=== PATIENT | female | born 1935 | race Caucasian/White ===

== ENCOUNTER 2021-11-17 14:35 | Inpatient (IN) | payer OTHER ==
[2021-11-17 17:45] LABS: Absolute Lymphocytes (CBC) 1.5 K/uL (0.7-4.9); Hematocrit 34.2 % (36.0-45.0); Lymphocytes % 8.6 % (15.3-44.8); MPV 6.6 fL (7.6-11.3); RBC Red Blood Cell Count 4.07 M/uL (3.86-4.86)
[2021-11-17] MEDS ORDERED: NA CHLORIDE 0.9% 100 ML ONE (17:45)
[2021-11-17] MEDS ORDERED: VANCOMYCIN 1 GM/VIAL ONE (17:45)
[2021-11-17] MEDS ORDERED: NA CHLORIDE 0.9% 250 ML ONE (17:45)
[2021-11-17] MEDS ORDERED: CEFEPIME 1 GM/VIAL ONE (17:46)
[2021-11-17] MEDS ORDERED: FENTANYL CITR 100 MCG/2 ML ONE (17:50)
[2021-11-17 17:54] LABS: Protime INR 1.25
--- NOTE | 2021-11-17 18:17 | EDPHYS ---
Physician Documentation [facility] Name: Lauren Green Age: 86 yrs Sex: Female : 1935 Arrival Date: 11/17/2021 Time: 14:43 Bed 18 Private MD: Rebeca Beaver Atiq ED Physician Cristobal Lopez HPI: 11/17 17:05 This 86 yrs old Female presents to ER via Wheelchair with complaints of Wound Check. cp 17:05 The patient presents with confusion. Onset: The symptoms/episode began/occurred cp gradually, and became worse today. 17:05 Possible causes: chronic wound to coccyx area. Associated signs and symptoms: Pertinent cp negatives: abdominal pain, chest pain, fever. Patient's baseline: Neuro: alert and fully oriented, Motor: no deficits, Ambulation: unable to walk, is bedridden, Speech: normal. Patient referred to ED by DR Nunez from wound care today for worsening pressure ulcer wound to coccyx/sacrum area. Historical: - Allergies: 14:49 Codeine; jd3 - PMHx: 14:49 Diabetes mellitus; jd3 - PSHx: 14:49 Cholecystectomy; Appendectomy; jd3 - Immunization history:: Adult Immunizations up to date, Client reports receiving the 2nd dose of the Covid vaccine, Flu vaccine is up to date. - Social history:: Smoking status: Patient denies any tobacco usage or history of. ROS: 17:10 Constitutional: Positive for poor PO intake, Negative for fever. cp 17:10 Eyes: Negative for injury, pain, redness, and discharge. cp 17:10 Cardiovascular: Negative for chest pain. 17:10 Respiratory: Negative for cough, wheezing. 17:10 Abdomen/GI: Negative for vomiting, diarrhea, constipation. 17:10 Back: Positive for pain at rest, pain with movement, of the sacrum. 17:10 : Negative for urinary symptoms. 17:10 Neuro: Positive for altered mental status, Negative for headache. 17:10 All other systems are negative. Exam: 17:15 Constitutional: The patient appears in no acute distress, alert, awake, cp non-diaphoretic, non-toxic, well developed, well nourished, uncomfortable. 17:15 Head/Face: Normocephalic, atraumatic. cp 17:15 Eyes: Periorbital structures: appear normal, Pupils: equal, round, and reactive to light and accomodation, Extraocular movements: intact throughout, Conjunctiva: normal, no exudate, no injection, Sclera: no appreciated abnormality, Lids and lashes: appear normal, bilaterally. 17:15 ENT: External ear(s): are unremarkable, Nose: is normal, Mouth: Lips: moist, Oral mucosa: pink and intact, moist, Posterior pharynx: Airway: no evidence of obstruction, patent. 17:15 Neck: ROM/movement: is normal, is supple, without pain, no range of motions limitations. 17:15 Chest/axilla: Inspection: normal. 17:15 Cardiovascular: Rate: normal, Rhythm: regular, Edema: is not appreciated, JVD: is not appreciated. 17:15 Respiratory: the patient does not display signs of respiratory distress, Respirations: normal, no use of accessory muscles, no retractions, labored breathing, is not present, Breath sounds: are clear throughout, no decreased breath sounds, no stridor, no wheezing. 17:15 Abdomen/GI: Inspection: abdomen appears normal, Bowel sounds: active, all quadrants, Palpation: abdomen is soft and non-tender, in all quadrants. 17:15 Skin: cellulitis, that is severe, on the sacrum and buttocks and coccyx, packed open wounds with purulent drainage noted. 17:15 Neuro: Orientation: to person, situation, Mentation: able to follow commands, slow to respond, Motor: moves all fours. 17:57 ECG was reviewed by the Attending Physician. cp Vital Signs: 14:51 BP 105 / 51; Pulse 97; Resp 17 S; Temp 97.7(TE); Pulse Ox 100% on R/A; Weight 88.45 kg jd3 (R); Height 5 ft. 7 in. (170.18 cm) (R); Pain 10/10; 18:07 BP 101 / 53; Pulse 83; Pulse Ox 94% on R/A; ap3 18:50 BP 141 / 69; Pulse 98; Pulse Ox 100% on R/A; ap3 20:00 BP 135 / 55; Pulse 83; Resp 19; Pulse Ox 100% on R/A; sm5 21:00 BP 110 / 47; Pulse 84; Resp 17; Pulse Ox 96% on R/A; sm5 21:00 BP 129 / 40; Pulse 91; Resp 18; Pulse Ox 96% on R/A; sm5 14:51 Body Mass Index 30.54 (88.45 kg, 170.18 cm) jd3 MDM: 16:32 Patient medically screened. 18:15 Physician consultation: Flaquito Nunez MD was contacted at 18:15, regarding admission, to the medical/surgical unit. patient's condition. 19:00 Data reviewed: vital signs, nurses notes, lab test result(s), EKG, radiologic studies, cp plain films. 20:00 Post IV fluid administration reassessment for Sepsis: Client prescribed 30 mL/kg IVF. Focused Assessment performed: November 17, 2021 at 20:05 Heart: Regular rate/rhythm noted. Lungs: Noted to be clear bilaterally. Current vital signs reviewed: Neuro: Neurological examination did not improve from previous exam. 11/17 17:00 Order name: Basic Metabolic Panel; Complete Time: 18:49 11/17 17:00 Order name: CBC with Diff; Complete Time: 18:13 11/17 18:26 Interpretation: Normal except: WBC 17.0; HCT 34.2; PLT 425; MPV 6.6; LIZETH% 81.5; LYM% cp 8.6; NEUT A 13.8. 11/17 17:00 Order name: LFT's; Complete Time: 18:49 11/17 17:00 Order name: Magnesium; Complete Time: 18:49 11/17 17:00 Order name: NT PRO-BNP; Complete Time: 18:49 11/17 17:00 Order name: PT-INR; Complete Time: 18:13 11/17 17:00 Order name: Troponin HS; Complete Time: 18:49 cp 11/17 17:00 Order name: Wound Culture cp 11/17 17:00 Order name: Procalcitonin; Complete Time: 18:49 11/17 17:00 Order name: Lactate; Complete Time: 18:49 11/17 17:00 Order name: Blood Culture Adult (2) 11/17 17:00 Order name: Urine Microscopic Only cp 11/17 17:47 Order name: COVID-19 SARS RT PCR (Document "Date of Onset" if Symptomatic) 11/17 18:37 Order name: Urine Dipstick-Ancillary; Complete Time: 18:49 EDMS 11/17 17:00 Order name: XRAY Chest (1 view) cp 11/17 19:12 Order name: Hemoglobin A1c EDAK 11/17 19:12 Order name: Thyroid Stimulating Hormone EDMS 11/17 19:12 Order name: CBC with Automated Diff EDMS 11/17 19:12 Order name: CBC with Automated Diff EDMS 11/17 19:12 Order name: CBC with Automated Diff EDMS 11/17 19:12 Order name: CBC with Automated Diff EDMS 11/17 19:12 Order name: Comprehensive Metabolic Panel EDMS 11/17 19:12 Order name: Comprehensive Metabolic Panel EDMS 11/17 19:12 Order name: Comprehensive Metabolic Panel EDMS 11/17 19:12 Order name: Comprehensive Metabolic Panel EDMS 11/17 19:14 Order name: Vancomycin Level Trough EDMS 11/17 19:14 Order name: Vancomycin Peak EDMS 11/17 20:37 Order name: Glucose, Ancillary Testing EDMS 11/17 21:17 Order name: Lactate Sepsis 2 HR Follow-up EDAK 11/17 17:00 Order name: EKG; Complete Time: 17:02 cp 11/17 17:00 Order name: Cardiac monitoring; Complete Time: 17:57 cp 11/17 17:00 Order name: EKG - Nurse/Tech; Complete Time: 17:57 cp 11/17 17:00 Order name: IV Saline Lock; Complete Time: 17:36 cp 11/17 17:00 Order name: Labs collected and sent; Complete Time: 17:36 cp 11/17 17:00 Order name: O2 Per Protocol; Complete Time: 17:49 cp 11/17 17:00 Order name: O2 Sat Monitoring; Complete Time: 17:49 cp 11/17 17:00 Order name: Urine Dipstick-Ancillary (obtain specimen); Complete Time: 18:33 cp 11/17 17:00 Order name: Renee; Complete Time: 18:33 cp 11/17 18:19 Order name: XRAY KUB cp 11/17 19:05 Order name: NPO EDAK 11/17 19:12 Order name: Social Service Consult EDMS EC:57 Rate is 85 beats/min. Rhythm is regular. CO interval is prolonged at 212 msec. QRS cp interval is normal. QT interval is normal. Interpreted by me. Reviewed by me. Administered Medications: 17:48 Drug: fentaNYL (PF) 25 mcg Route: IVP; Site: right antecubital; ap3 18:51 Follow up: Response: No adverse reaction; Pain is decreased ap3 18:04 Drug: Cefepime 1 grams Route: IVPB; Rate: 200 ml/hr; Infused Over: 30 mins; Site: right ap3 antecubital; 18:32 Follow up: IV Status: Completed infusion ap3 18:51 Follow up: Response: No adverse reaction ap3 18:32 Drug: vancoMYCIN 1 grams Route: IVPB; Infused Over: 2 hrs; Site: right antecubital; ap3 19:39 CANCELLED (Physician Discretion): NS 0.9% 1000 ml IV at 500 ml/hr Per protocol; 1000 mL cp bolus 21:30 Drug: Potassium Chloride 20 mEq Route: IV; Rate: calculated rate; Site: right sm5 antecubital; 21:30 Drug: NS 0.9% (30 ml/kg) 30 ml/kg Route: IV; Rate: bolus; Site: right antecubital; sm5 Disposition Summary: 11/17/21 18:16 Hospitalization Ordered Hospitalization Status: Inpatient Admission cp Provider: Flaquito Nunez cp Location: Telemetry/MedSurg (Inpatient) cp Condition: Fair cp Problem: new cp Symptoms: have improved cp Bed/Room Type: Standard cp Room Assignment: 403(11/17/21 20:11) mw Diagnosis - Altered mental status, unspecified cp - Pressure ulcer of buttock cp Forms: - Medication Reconciliation Form cp - SBAR form cp Signatures: Dispatcher [employer] EDMS Karol Arellano RN RN mw Jake Obrien PA PA cp Rod Marie RN RN jd3 Prokisch, Amanda, RN RN ap3 Ese Blount RN RN sm5 Corrections: (The following items were deleted from the chart) 18:17 17:37 Abdomen Pelvis W Con+CT.RAD.BRZ ordered. EDMS EDMS 18:18 18:16 Pressure ulcer of sacral region, stage 4 cp cp 19:08 18:24 Head Brain Wo Cont+CT.RAD.BRZ ordered. EDMS EDMS 19:39 18:52 NS 0.9% 1000 ml IV at 500 ml/hr Per protocol; 1000 mL bolus ordered. cp cp 20:11 18:16 cp mw
--- NOTE | 2021-11-17 18:17 | ER ---
Nurse's Notes [facility] Name: Lauren Green Age: 86 yrs Sex: Female : 1935 Arrival Date: 11/17/2021 Time: 14:43 Bed 18 Private MD: Rebeca Beaver Atiq Diagnosis: Altered mental status, unspecified;Pressure ulcer of buttock Presentation: 11/17 14:47 Chief complaint: Patient's son or daughter states: "Dr. Beaver sent us here to be jd3 admitted for a bad wound her backside that is a stage 3 that smells.". Coronavirus screen: At this time, the client does not indicate any symptoms associated with coronavirus-19. Ebola Screen: No symptoms or risks identified at this time. Initial Sepsis Screen: Does the patient meet any 2 criteria? No. Patient's initial sepsis screen is negative. Does the patient have a suspected source of infection? No. Patient's initial sepsis screen is negative. Risk Assessment: Do you want to hurt yourself or someone else? Patient reports no desire to harm self or others. Onset of symptoms was November 17, 2021. 14:47 Method Of Arrival: Wheelchair jd3 14:47 Acuity: SHANELLE 2 jd3 Historical: - Allergies: 14:49 Codeine; jd3 - PMHx: 14:49 Diabetes mellitus; jd3 - PSHx: 14:49 Cholecystectomy; Appendectomy; jd3 - Immunization history:: Adult Immunizations up to date, Client reports receiving the 2nd dose of the Covid vaccine, Flu vaccine is up to date. - Social history:: Smoking status: Patient denies any tobacco usage or history of. Screenin:31 Abuse screen: Denies threats or abuse. Nutritional screening: No deficits noted. ap3 Tuberculosis screening: No symptoms or risk factors identified. Fall Risk No fall in past 12 months (0 pts). Secondary diagnosis (15 points) impaired mobility, IV access (20 points). Ambulatory Aid- None/Bed Rest/Nurse Assist (0 pts). Gait- Impaired (20 pts.). Mental Status- Oriented to own ability (0 pts). Total Tim Fall Scale indicates High Risk Score (45 or more points). Fall prevention measures have been instituted. Side Rails Up X 2 Placed Close to Nursing Station Frequent Obs/Assessments Occuring Family Present and informed to notify staff if the need to leave the bedside As available patient and family educated on Fall Prevention Program and Strategies. Assessment: 18:04 General: Appears in no apparent distress. uncomfortable, Behavior is cooperative, ap3 restless. Pain: Complains of pain in coccyx and gluteal cleft Pain currently is 10 out of 10 on a pain scale. Neuro: Level of Consciousness is awake, alert, obeys commands, confused, Oriented to person, time, Speech is normal. Cardiovascular: Patient's skin is warm and dry. Respiratory: Airway is patent Respiratory effort is even, unlabored. Derm: Wound noted coccyx and gluteal cleft Wound is packed and dressed. patients sister at the bedside reports that the patient went to wound care this afternoon. nurse and provider assessed dressing and pulled primary dressing off. nurse replaced primary dressing after retrieving a culture. 18:45 Reassessment: patient received full linen change. ap3 19:45 Reassessment: No changes from previously documented assessment. Patient and/or family sm5 updated on plan of care and expected duration. Pain level reassessed. 20:48 Reassessment: No changes from previously documented assessment. sm5 21:50 Reassessment: No changes from previously documented assessment. Patient and/or family sm5 updated on plan of care and expected duration. Pain level reassessed. 23:00 Reassessment: No changes from previously documented assessment. sm5 23:27 Reassessment: pt sent to floor with printed order for magnesium and rest of fluid bolus sm5 to be given by the nurse on the floor. Vital Signs: 14:51 BP 105 / 51; Pulse 97; Resp 17 S; Temp 97.7(TE); Pulse Ox 100% on R/A; Weight 88.45 kg jd3 (R); Height 5 ft. 7 in. (170.18 cm) (R); Pain 10/10; 18:07 BP 101 / 53; Pulse 83; Pulse Ox 94% on R/A; ap3 18:50 BP 141 / 69; Pulse 98; Pulse Ox 100% on R/A; ap3 20:00 BP 135 / 55; Pulse 83; Resp 19; Pulse Ox 100% on R/A; sm5 21:00 BP 110 / 47; Pulse 84; Resp 17; Pulse Ox 96% on R/A; sm5 21:00 BP 129 / 40; Pulse 91; Resp 18; Pulse Ox 96% on R/A; sm5 14:51 Body Mass Index 30.54 (88.45 kg, 170.18 cm) jd3 ED Course: 14:43 Patient arrived in ED. am2 14:45 Rebeca Beaver MD is Private Physician. am2 14:49 Triage completed. jd3 14:50 Jake Obrien PA is PHCP. cp 14:50 Cristobal Lopez DO is Attending Physician. cp 14:52 Arm band placed on. jd3 16:31 Divya Nelson, RN is Primary Nurse. ap3 16:31 Patient has correct armband on for positive identification. Bed in low position. Call ap3 light in reach. Side rails up X2. Adult w/ patient. Pulse ox on. NIBP on. Door closed. Noise minimized. 17:37 Inserted saline lock: 22 gauge in right antecubital area, using aseptic technique. ap3 Blood collected. 17:59 COVID-19 SARS RT PCR (Document "Date of Onset" if Symptomatic) Sent. mb7 18:15 Flaquito Nunez MD is Hospitalizing Provider. cp 18:18 COVID-19 SARS RT PCR (Document "Date of Onset" if Symptomatic) Sent. ap3 18:57 XRAY Chest (1 view) In Process Unspecified. EDMS 18:57 XRAY KUB In Process Unspecified. EDMS 19:11 Primary Nurse role handed off by Divya Nelson, GUERDA mw2 19:21 Ese Blount, GUERDA is Primary Nurse. 5 23:25 No provider procedures requiring assistance completed. Patient admitted, IV remains in [address] Administered Medications: 17:48 Drug: fentaNYL (PF) 25 mcg Route: IVP; Site: right antecubital; ap3 18:51 Follow up: Response: No adverse reaction; Pain is decreased ap3 18:04 Drug: Cefepime 1 grams Route: IVPB; Rate: 200 ml/hr; Infused Over: 30 mins; Site: right ap3 antecubital; 18:32 Follow up: IV Status: Completed infusion ap3 18:51 Follow up: Response: No adverse reaction ap3 18:32 Drug: vancoMYCIN 1 grams Route: IVPB; Infused Over: 2 hrs; Site: right antecubital; ap3 19:39 CANCELLED (Physician Discretion): NS 0.9% 1000 ml IV at 500 ml/hr Per protocol; 1000 mL cp bolus 21:30 Drug: Potassium Chloride 20 mEq Route: IV; Rate: calculated rate; Site: right sm5 antecubital; 21:30 Drug: NS 0.9% (30 ml/kg) 30 ml/kg Route: IV; Rate: bolus; Site: right antecubital; 5 Medication: 18:15 VIS not applicable for this client. ap3 Outcome: 18:16 Decision to Hospitalize by Provider. cp 23:25 Admitted to Med/surg accompanied by tech, via stretcher, with chart, Report called to [facility] Lanny 23:25 Condition: stable 23:25 Instructed on the need for admit. 23:28 Patient left the ED. [facility] Signatures: Dispatcher [employer] EDMS Jake Obrien PA PA cp Moreno, Amanda amRod Hayes RN RN Divya Ware RN RN ap3 Radha Luo [facility] Katherine Mcmullen 7 Ese Blount RN RN sm5 Corrections: (The following items were deleted from the chart) 14:52 14:47 Acuity: SHANELLE 3 jd3 jd3
[2021-11-17 18:24] LABS: Albumin 2.7 g/dL (3.4-5.0); Bilirubin Direct 0.2 mg/dL (0-0.2); Bilirubin Total 0.7 mg/dL (0.2-1.0); Magnesium 1.6 mg/dL (1.8-2.4); Protein, Total 7.6 g/dL (6.4-8.2); Troponin High Sensitivity 18.6 pg/mL (<58.9)
[2021-11-17 18:25] LABS: Potassium 2.7 mmol/L (3.5-5.1)
[2021-11-17 18:37] LABS: Urine Blood Negative (Negative); Urine Glucose Negative (Negative); Urine Protein Negative (Negative); Urine Specific Gravity 1.015 (1.005-1.030)
[2021-11-17 19:07] LABS: Urine Bacteria <20 /HPF (<20); Urine RBC <5 /HPF (NONE SEEN)
[2021-11-17] MEDS ORDERED: WATER FOR INJ,STERILE 10 ML IM PRN (19:07)
[2021-11-17] MEDS ORDERED: D50W 25 GM/50 ML SYRINGE IV PRN (19:07)
[2021-11-17] MEDS ORDERED: GLUCAGON 1 MG/VIAL IM PRN (19:07)
[2021-11-17] MEDS ORDERED: ZIPRASIDONE MESYLA 20 MG/VIAL IM PRN (19:07)
--- NOTE | 2021-11-17 19:15 | P.HP ---
Certification for Inpatient Patient admitted to: Inpatient With expected LOS: >2 Midnights Patient will require the following post-hospital care: Long Term Practitioner: I am a practitioner with admitting privileges, knowledge of patient current condition, hospital course, and medical plan of care. Services: Services provided to patient in accordance with Admission requirements found in Title 42 Section 412.3 of the Code of Federal Regulations Patient History Date of Service: 11/18/21 Primary Care Provider: Delia Reason for admission: Sepsis secondary to pressure ulcer History of Present Illness: Patient of Dr. Lin with a history of diabetes, htn and stroke. Mostly bed bound. Had developed a pressure ulcer for which Dr. Lin sent her to the wound care center. She had been started on Santyl last week. The past 3 days the patient has been getting increased more confused. Eating less and getting more combative. She had worsening of the wound bed. Was much deeper on todays exam. Decisison was made with her sister to admit her. Allergies codeine Adverse Reaction (Verified 11/17/21 20:14) Hives Home Medications: Aspirin [Aspirin EC 81 MG] 81 mg PO DAILY 11/11/21 Furosemide 40 mg PO DAILY 11/11/21 Insulin Aspart Prot/Insuln Asp [Novolog Mix 70-30 Flexpen Syrn] 40 unit SQ BEDTIME 11/11/21 Insulin Aspart Prot/Insuln Asp [Novolog Mix 70-30 Flexpen Syrn] 52 unit SQ DAILY 11/11/21 Metolazone [Zaroxolyn] 10 mg PO DAILY 11/11/21 Metoprolol Succinate 25 mg PO DAILY 11/11/21 Cholecalciferol (Vitamin D3) [Vitamin D3] 125 mcg PO DAILY 11/18/21 Potassium Gluconate 90 mg PO DAILY 11/18/21 Vitamin B Complex [B-Complex Vitamin] 1 cap PO DAILY 11/18/21 Vitamin E (Dl,Tocopheryl Acet) [Vitamin E] 180 mg PO DAILY 11/18/21 - Past Medical/Surgical History Diabetic: Yes -: htn -: dm -: cholecystectomy - Family History Mother -: Diabetes Sister -: Diabetes Brother -: Diabetes - Social History Alcohol use: No Review of Systems is unable to be obtained Physical Examination - Physical Exam General: Moderate distress, Delirious HEENT: Atraumatic, PERRLA, Mucous membr. moist/pink, EOMI, Sclerae nonicteric Neck: Supple, 2+ carotid pulse no bruit, No LAD, Without JVD or thyroid abnormality Respiratory: Clear to auscultation bilaterally, Normal air movement Cardiovascular: Regular rate/rhythm, Normal S1 S2 Gastrointestinal: Normal bowel sounds, No tenderness Musculoskeletal: No tenderness Integumentary: No rashes, Pressure ulcer (stage 2 Please see wound care note. ) Neurological: Normal gait, Normal speech, Normal strength at 5/5 x4 extr, Normal tone, Normal affect Lymphatics: No axilla or inguinal lymphadenopathy - Studies Laboratory Data (last 24 hrs) 11/17/21 17:32: PT 13.8 H, INR 1.25 11/17/21 17:32: WBC 17.0 H, Hgb 12.1, Hct 34.2 L, Plt Count 425 H 11/17/21 17:32: Sodium 127 L, Potassium 2.7 L*, BUN 42 H, Creatinine 1.08, Glucose 251 H, Magnesium 1.6 L, Total Bilirubin 0.7, AST 26, ALT 17, Alkaline Phosphatase 98 Assessment and Plan - Problems (Diagnosis) (1) Sepsis Current Visit: Yes Status: Acute Plan: will send her to the ER for admission. Get cultures and start antibiotics and fluids. Will need surgical debridgement of the ulcer. This is the most likely source of infection. If goes down to the bone. The patient will need 6 weeks of iv antibiotics. Will get an xray of the region. 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 Muse for debridme nt. Qualifiers: Laterality: right Qualified Code(s): L89.313 - Pressure ulcer of right buttock, stage 3 (3) Delirium Current Visit: Yes Status: Acute Plan: Most likely due to pain and infection. She is responsive and moves all 4 limbs (4) Diabetes Current Visit: No Status: Chronic Plan: will keep her on low dose sliding scale. Qualifiers: Diabetes mellitus type: type 2 Diabetes mellitus penitentiary insulin use: with penitentiary use Diabetes mellitus complication status: without complication Qualified Code(s): E11.9 - Type 2 diabetes mellitus without complications; Z79.4 - longterm (current) use of insulin (5) Hypertension Current Visit: No Status: Chronic Plan: restart her metoprolol. Qualifiers: Hypertension type: primary hypertension Qualified Code(s): I10 - Essential (primary) hypertension Discharge Plan: LTAC Plan to discharge in: Greater than 2 days - Advance Directives Does patient have a Living Will: Yes Does patient have a Durable POA for Healthcare: Yes - Code Status/Comfort Care Code Status Assessed: No Code Status: Full Code Physician Review: Patient Assessed, Agree with Above Assessment and Plan Critical Care: No Time Spent Managing Pts Care (In Minutes): 75
--- NOTE | 2021-11-17 19:52 | RAD REPORT ---
EXAM DESCRIPTION: RAD - Chest Single View - 11/17/2021 6:55 pm CLINICAL HISTORY: pressure wound buttocks COMPARISON: None TECHNIQUE: AP portable chest image was obtained 11/17/2021 6:55 pm . FINDINGS: Lungs are clear. Heart and vasculature are normal. No measurable pleural effusion and no p neumothorax. No acute bony abnormality seen. No acute aortic findings suspected. IMPRESSION: No acute cardiopulmonary process.
--- NOTE | 2021-11-17 19:53 | RAD REPORT ---
EXAM DESCRIPTION: RAD - Abdomen 1 View (KUB) - 11/17/2021 6:55 pm CLINICAL HISTORY: decubitus ulcer COMPARISON: No comparisons FINDINGS: Bowel gas pattern is non-specific. No obstruction, free air or pneumatosis. No suspicious calcifications. Numerous surgical clips and suture wires are seen lateral mid abdomen. Bony degenerative changes are present. No acute bone finding. IMPRESSION: Negative KUB examination for acute or emergent finding.
[2021-11-17] MEDS ORDERED: VANCOMYCIN 1 GM in NA CHLORIDE 0.9% 250 ML IVPB SCH (20:00)
[2021-11-17] MEDS ORDERED: VANCOMYCIN 500 MG in NA CHLORIDE 0.9% 100 ML IVPB SCH (20:00)
[2021-11-17] MEDS ORDERED: KCL 20 MEQ/100 mL IVPB 100 ML IV ONE (21:16)
[2021-11-17] MEDS ORDERED: NA CHLORIDE 0.9% 1,000 ML ONE (21:16)
[2021-11-18 00:41] VITALS: BMI 32.0
[2021-11-18] MEDS: NA CHLORIDE 0.9% 1,000 ML IV SCH ×2 (01:35→09:20)
[2021-11-18] MEDS: Meropenem 1,000 MG in NA CHLORIDE 0.9% 100 ML IV SCH ×3 (01:36→22:04)
[2021-11-18] MEDS: INSULIN -REGULAR HUMAN 50 UNIT/0.5 ML ML SQ SCH ×5 (01:37→22:05)
[2021-11-18] MEDS ORDERED: D10W 125 ML IV PRN (06:02)
[2021-11-18] MEDS: PANTOPRAZOLE 40MG TABLET PO SCH (06:25)
[2021-11-18] MEDS ORDERED: NA CHLORIDE 0.9% 250 ML ONE (06:41)
[2021-11-18 06:43] LABS: Absolute Lymphocytes (CBC) 0.9 K/uL (0.7-4.9); Hematocrit 31.2 % (36.0-45.0); Lymphocytes % 3.6 % (15.3-44.8); MPV 6.4 fL (7.6-11.3)
[2021-11-18] MEDS ORDERED: NA CHLORIDE 0.9% 1,000 ML IV ONE (07:00)
[2021-11-18 07:08] LABS: Albumin 2.1 g/dL (3.4-5.0); Bilirubin Total 0.8 mg/dL (0.2-1.0); Protein, Total 6.1 g/dL (6.4-8.2); Thyroid Stimulating Hormone 1.98 uIU/mL (0.360-3.740)
[2021-11-18 07:09] LABS: Potassium 2.6 mmol/L (3.5-5.1)
[2021-11-18] MEDS: HYDROMORPHONE HCL 1 MG/ML INJ IV PRN ×2 (07:57→19:51)
[2021-11-18] MEDS ORDERED: GLUCAGON 1 MG/VIAL IM PRN (08:00)
[2021-11-18] MEDS ORDERED: D50W 25 GM/50 ML SYRINGE IV PRN (08:00)
--- NOTE | 2021-11-18 08:02 | P.PN ---
Subjective Date of Service: 11/18/21 Primary Care Provider: Delia Chief Complaint: Sepsis secondary to pressure ulcer Subjective: No new changes (Patient is confused. Needs electrolyte replacement) Review of Systems is unable to be obtained Physical Examination - Vital Signs Temperature: 98.1 F Blood Pressure: 101/42 Pulse: 83 Respirations: 14 Pulse Ox (%): 92 - Physical Exam General: Delirious HEENT: Atraumatic, PERRLA, EOMI Neck: Supple, JVD not distended Respiratory: Clear to auscultation bilaterally, Normal air movement Cardiovascular: Regular rate/rhythm, Normal S1 S2 Gastrointestinal: Normal bowel sounds, No tenderness Musculoskeletal: No tenderness Integumentary: No rashes Neurological: Normal speech, Normal tone, Normal affect Lymphatics: No axilla or inguinal lymphadenopathy - Studies Laboratory Data (last 24 hrs) 11/17/21 17:32: PT 13.8 H, INR 1.25 11/17/21 17:32: WBC 17.0 H, Hgb 12.1, Hct 34.2 L, Plt Count 425 H 11/17/21 17:32: Sodium 127 L, Potassium 2.7 L*, BUN 42 H, Creatinine 1.08, Glucose 251 H, Magnesium 1.6 L, Total Bilirubin 0.7, AST 26, ALT 17, Alkaline Phosphatase 98 Assessment And Plan - Current Problems (Diagnosis) (1) Sepsis Current Visit: Yes Status: Acute Plan: will send her to the ER for admission. Get cultures and start antibiotics and fluids. Will need surgical debridgement of the ulcer. This is the most likely source of infection. If goes down to the bone. The patient will need 6 weeks of iv antibiotics. Will get an xray of the region. 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 Muse for debridment. Qualifiers: Laterality: right Qualified Code(s): L89.313 - Pressure ulcer of right buttock, stage 3 (3) Delirium Current Visit: Yes Status: Acute Plan: Most likely due to pain and infection. She is responsive and moves all 4 limbs (4) Diabetes Current Visit: No Status: Chronic Plan: will keep her on low dose sliding scale. 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 Qualifiers: Hypertension type: primary hypertension Qualified Code(s): I10 - Essential (primary) hypertension Discharge Plan: LTAC Plan to discharge in: Greater than 2 days - Code Status/Comfort Care Code Status Assessed: No Physician Review: Patient Assessed, Agree with Above Assessment and Plan Critical Care: No Time Spent Managing PTS Care (In Minutes): 25
[2021-11-18 08:34] LABS: Blood Morphology Comment NOT SEEN (NOT SEEN); Platelet Estimate ADEQ
[2021-11-18] MEDS: METOPROLOL XL 25 MG TAB PO SCH (08:54)
[2021-11-18] MEDS ORDERED: NA CHLORIDE IV ONE (09:00)
[2021-11-18] MEDS ORDERED: POTASSIUM CL IV ONE (09:00)
--- NOTE | 2021-11-18 09:09 | EKG ---
Test Date: 2021-11-17 Test Time: 17:52:41 Housekeeper Home: [facility] MEASUREMENT RESULTS: Intervals: Rate: 85 TN: 212 QRSD: 92 QT: 412 QTc: 490 [place]: P: 31 TN: 212 QRS: 18 T: 61 INTERPRETIVE STATEMENTS: Sinus rhythm with 1st degree AV block with premature supraventricular complexes Nonspecific T wave abnormality Abnormal ECG No previous ECG available for comparison Electronically Signed On 11-18-21 09:08:06 CDT by Taj Joshi
[2021-11-18] MEDS ORDERED: BUPIVACAINE 0.25% PF 10 ML VIAL ONE (10:57)
[2021-11-18] MEDS ORDERED: SODIUM HYPOCHLORITE 0.25% 473 ML ONE (10:58)
[2021-11-18] MEDS ORDERED: NA CHLORIDE 0.9% 1,000 ML ONE ×2 (12:46→14:58)
[2021-11-18] MEDS ORDERED: LIDOCAINE 1% MPF 5 ML VIAL ONE (13:09)
[2021-11-18] MEDS ORDERED: propofoL 200 MG/20 ML VIAL IV ONE (13:09)
[2021-11-18] MEDS ORDERED: LIDOCAINE 1% MPF 2 ML AMPULE ONE (13:10)
[2021-11-18] MEDS ORDERED: EPHEDRINE SULF 50 MG/ML VIAL ONE (13:32)
[2021-11-18] MEDS ORDERED: FENTANYL CITR 100 MCG/2 ML ONE (13:39)
[2021-11-18] MEDS ORDERED: Phenylephrine HCl 10 MG/ML 1 ML VIAL ONE (13:42)
--- NOTE | 2021-11-18 14:20 | P.OP ---
Preoperative diagnosis: Infected Sacral Pressure Ulcer Postoperative diagnosis: Infected Sacral Pressure Ulcer Primary procedure: Debridement of Infected Sacral Pressure Ulcer to Bone Anesthesia: GETA Estimated blood loss: 30cc Specimen: cultures, debridement tissue Findings: Necrosis to sacrum with osteomyelitis ~ 15cm round Complications: None Transferred to: Recovery Room Condition: Good
[2021-11-18] MEDS: ENOXAPARIN 40 MG/0.4 ML SQ SCH (16:53)
[2021-11-18] MEDS ORDERED: VANCOMYCIN 1.25 GM in NA CHLORIDE 0.9% 250 ML IVPB SCH (18:00)
--- NOTE | 2021-11-18 19:43 | CON ---
Date of Consultation: 11/18/2021 Brief History Of Present Illness: The patient is an 86-year-old female with a history of hypertensio n, diabetes, and CVA, mostly bedbound, who had developed a pressure ulcer for which a physician named Dr. Rucker [facility]. She had been started on Santyl last week. In the past 3 days, she has been getting more confused, eating less, combative, disoriented, and worsening foul odor from the bed and as such the family brought her to the emergency room with the above-stated comp laints. Past Medical History: As described above with hypertension, diabetes, and stroke as well as being be dbound. Allergies: CODEINE. Medications: Home medications include aspirin, Lasix, insulin, Zaroxolyn, metoprolol, cholecalcifero l, potassium gluconate, vitamin B complex, vitamin E. Family History: Significant for diabetes in all siblings and her mother. Social History: Unable to obtain as the patient remains disoriented throughout my examination. Review of Systems: Unable to obtain as the patient remains disoriented throughout my examination. Physical Examination: General: She is awake, alert, and conversive, but confused and unable to answer questions appropriat ino. HEENT: She is otherwise normocephalic. Sclerae anicteric. Mucous membranes moist. Oropharynx diego r. Neck: Supple. No JVD. Chest: Diminished excursion. Cardiovascular: Regular rate and rhythm. Pulmonary: Clear to auscultation bilaterally. Abdomen: Soft, nontender. Back: Focused examination of her back shows a pressure ulcer stage IV, likely with necrosis extendin g to the sacrum with feculent foul odor and obvious black necrosis in this area. Laboratory Data: She had a laboratory exam, which revealed a white blood cell count of 17, hemoglobi n is 12.1, hematocrit 34.2, platelet count is 425. Her coag's showed a PT 13.8, INR 1.25. Chemistry showed a sodium of 129, potassium was 2.6, chloride 89, carbon dioxide 33, BUN 35, creatinine was 1. 09, glucose is 206, lactic acid 1.8, calcium 9.4, total bilirubin 0.8, direct component was not measu red. AST 20, ALT 13, alkaline phosphatase 77. Procalcitonin was 0.19. COVID was negative. She had a KUB x-ray performed on 11/17/2021 officially read as negative KUB for any emergent findings. She had a chest x-ray performed as well, officially read as no acute cardiopulmonary process. Assessment And Plan: This is an 86-year-old female who comes in with sepsis likely related to a sign ificant infection/pressure ulcer of her sacral area with infection extending in this area. 1.IV fluid hydration. 2.Antibiotic coverage. 3.I have explained risks, benefits, and alternatives of wide local debridement of this area to her s ister, who is currently her medical power of state's attorney including but not limited to bleeding, infectio n, damage to surrounding tissue, need for further operations and procedures, ongoing wound care. The patient's family agrees to proceed as indicated. Thank you for this interesting consult. NIKKO/GIORGI Voice ID: [id number] Report ID: [id number]
--- NOTE | 2021-11-19 00:44 | OP ---
Date of Procedure: 11/18/2021 Surgeon: Jamal Muse MD, Preoperative Diagnosis: Infected sacral pressure ulcer. Postoperative Diagnosis: Infected sacral pressure ulcer. Procedure Performed: Debridement of infected sacral pressure ulcer extending to the bone. Anesthesia: General endotracheal. Estimated Blood Loss: 30 cc. Specimen: Cultures were sent as well as debridement tissue for specimen. Findings: Necrosis extending to the sacrum with osteomyelitis overlying the sacrococcygeal area, jonah roximately 15 cm round area of necrosis. Complications: None. Disposition: The patient was transferred to the recovery room in good condition. Procedure In Detail: After informed consent was obtained, the patient was brought to the operating r oom and prepped in the usual sterile fashion. After adequate anesthesia was achieved, a 10-blade was used to circumferentially dissect out and through the subcutaneous tissues down through subcutaneous tissues. A large area of the sacrum, which had obvious infected necrosis with feculent odor, this w as debrided using a combination of sharp as well as electrocautery dissection circumferentially down to remove all necrotic tissue, which extended through the muscular plane and into the bone of the sac rum. Osteomyelitis was appreciated at the sacrum at this area. All necrotic tissue was debrided usi ng the above methods, and when all debrided tissue was removed, cultures were sent both aerobic and a naerobic speciation from the specimen. At this point, debridement tissue was sent off as well. The area was copiously irrigated. Hemostasis was achieved with electrocautery. After appropriately dryi ng, the wound was then packed with Dakin-soaked Kerlix. Two Kerlix rolls were placed and a sterile d ry dressing was placed over the top. The patient tolerated the procedure well without evidence of co mplication and was transferred to PACU in good condition. All counts were correct at the end of the case. NIKKO/MODL Voice ID: [id number] Report ID: [id number]
[2021-11-19] MEDS: ACETAMINOPHEN 500 MG TAB PO PRN (02:51)
[2021-11-19] MEDS ORDERED: KCL 20 MEQ/100 mL IVPB 20 MEQ/100 ML BAG IV SCH (03:00)
[2021-11-19] MEDS: PANTOPRAZOLE 40MG TABLET PO SCH (05:33)
[2021-11-19 05:58] LABS: Absolute Lymphocytes (CBC) 1.7 K/uL (0.7-4.9); Lymphocytes % 13.6 % (15.3-44.8); MPV 6.4 fL (7.6-11.3); RBC Red Blood Cell Count 3.12 M/uL (3.86-4.86)
[2021-11-19] MEDS: HYDROMORPHONE HCL 1 MG/ML INJ IV PRN ×2 (06:04→16:01)
[2021-11-19] MEDS: NA CHLORIDE 0.9% 1,000 ML IV SCH ×2 (06:10→12:00)
[2021-11-19 06:11] LABS: Albumin 1.8 g/dL (3.4-5.0); Bilirubin Total 0.5 mg/dL (0.2-1.0); Potassium 3.5 mmol/L (3.5-5.1); Protein, Total 5.6 g/dL (6.4-8.2)
--- NOTE | 2021-11-19 08:36 | P.PN ---
Subjective Date of Service: 11/19/21 Primary Care Provider: Delia Chief Complaint: Sepsis secondary to pressure ulcer Subjective: Improving Review of Systems is unable to be obtained Physical Examination - Vital Signs Temperature: 98.9 F Blood Pressure: 99/47 Pulse: 80 Respirations: 18 Pulse Ox (%): 97 - Physical Exam General: In no apparent distress HEENT: Atraumatic, PERRLA, EOMI Neck: Supple, JVD not distended Respiratory: Clear to auscultation bilaterally, Normal air movement Cardiovascular: Regular rate/rhythm, Normal S1 S2 Gastrointestinal: Normal bowel sounds, No tenderness Musculoskeletal: No tenderness Integumentary: No rashes Neurological: Normal speech, Normal tone, Normal affect Lymphatics: No axilla or inguinal lymphadenopathy Assessment And Plan - Current Problems (Diagnosis) (1) Decubitus ulcer of buttock, stage 3 Current Visit: Yes Status: Chronic Plan: uncovered increased depth with the santyl will consult Dr. Muse for debridment. Qualifiers: Laterality: right Qualified Code(s): L89.313 - Pressure ulcer of right buttock, stage 3 (2) Delirium Current Visit: Yes Status: Acute Plan: Most likely due to pain and infection. She is responsive and moves all 4 limbs (3) Diabetes Current Visit: No Status: Chronic Plan: will keep her on low dose sliding scale. 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 Qualifiers: Hypertension type: primary hypertension Qualified Code(s): I10 - Essential (primary) hypertension (5) Osteomyelitis Current Visit: Yes Status: Acute Plan: Patient has e coli in the wound. multidrug sensitive. We can wait a day for blood and surgical cultures. before starting specific antibiotics. Consider levaquin. she needs snf placement for wound care and 6 weeks of iv antibiotics. Qualifiers: Osteomyelitis type: other acute Laterality: unspecified laterality Discharge Plan: LTAC Plan to discharge in: 48 Hours - Code Status/Comfort Care Code Status Assessed: No Physician Review: Patient Assessed, Agree with Above Assessment and Plan Critical Care: No Time Spent Managing PTS Care (In Minutes): 20
[2021-11-19] MEDS: METOPROLOL XL 25 MG TAB PO SCH (09:00)
[2021-11-19] MEDS: INSULIN GLARGINE 100 UNIT/ML SQ SCH (09:29)
[2021-11-19] MEDS: INSULIN -REGULAR HUMAN 50 UNIT/0.5 ML ML SQ SCH ×4 (09:30→20:43)
[2021-11-19] MEDS: Meropenem 1,000 MG in NA CHLORIDE 0.9% 100 ML IV SCH ×2 (09:32→20:42)
[2021-11-19] MEDS ORDERED: VANCOMYCIN 1.5 GM in NA CHLORIDE 0.9% 500 ML IVPB SCH (14:00)
[2021-11-19] MEDS: COLLAGENASE 30 GM OINTMENT TOP SCH (16:02)
[2021-11-19] MEDS: SODIUM HYPOCHLORITE 0.25% 473 ML TOP SCH (16:03)
[2021-11-19] MEDS: ENOXAPARIN 40 MG/0.4 ML SQ SCH (17:49)
--- NOTE | 2021-11-19 19:25 | P.PN ---
Subjective Date of Service: 11/19/21 Primary Care Provider: Delia Chief Complaint: Sepsis secondary to pressure ulcer Subjective: Improving Physical Examination - Vital Signs Temperature: 99.1 F Blood Pressure: 92/40 Pulse: 79 Respirations: 18 Pulse Ox (%): 99 - Physical Exam General: Alert, In no apparent distress, Cooperative, Confused Integumentary: Other (sacral wound is stable) Assessment And Plan - Current Problems (Diagnosis) (1) Osteomyelitis Current Visit: Yes Status: Acute Plan: - continue wound care per order - pressure reduction with rolling Q2 hrs - air mattress - antibiotics - continue medical management per Dr. Nunez Qualifiers: Osteomyelitis type: other acute Laterality: unspecified laterality Physician Review: Patient Assessed, Agree with Above Assessment and Plan
[2021-11-20] MEDS: NA CHLORIDE 0.9% 1,000 ML IV SCH ×3 (01:20→20:02)
[2021-11-20 06:17] LABS: Absolute Lymphocytes (CBC) 1.8 K/uL (0.7-4.9); Hematocrit 31.4 % (36.0-45.0); Lymphocytes % 19.1 % (15.3-44.8); MPV 6.5 fL (7.6-11.3); RBC Red Blood Cell Count 3.59 M/uL (3.86-4.86)
[2021-11-20] MEDS: PANTOPRAZOLE 40MG TABLET PO SCH (06:17)
[2021-11-20 06:49] LABS: Albumin 1.9 g/dL (3.4-5.0); Bilirubin Total 0.6 mg/dL (0.2-1.0); Protein, Total 5.6 g/dL (6.4-8.2)
[2021-11-20 06:50] LABS: Potassium 2.9 mmol/L (3.5-5.1)
[2021-11-20] MEDS: INSULIN -REGULAR HUMAN 50 UNIT/0.5 ML ML SQ SCH ×4 (07:30→20:48)
--- NOTE | 2021-11-20 08:19 | P.PN ---
Subjective Date of Service: 11/20/21 Primary Care Provider: Delia Chief Complaint: Sepsis secondary to pressure ulcer Subjective: Improving Review of Systems 10-point ROS is otherwise unremarkable Neurological: Confusion Physical Examination - Vital Signs Temperature: 98.3 F Blood Pressure: 101/59 Pulse: 80 Respirations: 16 Pulse Ox (%): 97 - Physical Exam General: In no apparent distress, Confused HEENT: Atraumatic, PERRLA, EOMI Neck: Supple, JVD not distended Respiratory: Clear to auscultation bilaterally, Normal air movement Cardiovascular: Regular rate/rhythm, Normal S1 S2 Gastrointestinal: Normal bowel sounds, No tenderness Musculoskeletal: No tenderness Integumentary: No rashes Neurological: Normal speech, Normal tone, Normal affect Lymphatics: No axilla or inguinal lymphadenopathy Assessment And Plan - Current Problems (Diagnosis) (1) Osteomyelitis Current Visit: Yes Status: Acute Plan: Patient has e coli in the wound. multidrug sensitive. We can wait a day for blood and surgical cultures. before starting specific antibiotics. Consider levaquin. she needs snf placement for wound care and 6 weeks of iv antibiotics. 11/20 will change the patient to levaquin. She has gram +ve in the operative wound culture. E. coli in the initial wound culture. Levaquin will cover both Will await the antibiotigram to see if there is any other meds we have to cover. We can add oral bactrim to protect from MRSA Qualifiers: Osteomyelitis type: other acute Laterality: unspecified laterality (2) Delirium Current Visit: Yes Status: Acute Plan: Most likely due to pain and infection. She is responsive and moves all 4 limbs 11/20 She is arousable. Has been in bed for 4 days. Will start by removing oxygen and monitor to make the patient more comfortable. Have PT get her up to chair for an hour. Will need to slowly increase her activity. She has been mostly chair and bed bound for the last few months. (3) Diabetes Current Visit: No Status: Chronic Plan: will keep her on low dose sliding scale. 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 Qualifiers: Hypertension type: primary hypertension Qualified Code(s): I10 - Essential (primary) hypertension (5) Discharge planning issues Current Visit: Yes Status: Acute Plan: will need PT, Wound care and 6 weeks of iv antibiotics. Will discuss with Soc ial services. Physician Review: Patient Assessed, Agree with Above Assessment and Plan Critical Care: No Time Spent Managing PTS Care (In Minutes): 20
[2021-11-20 08:24] LABS: Blood Morphology Comment NOTED (NOT SEEN); Hypochromasia 1+; Platelet Estimate ADEQ
[2021-11-20] MEDS: INSULIN GLARGINE 100 UNIT/ML SQ SCH (09:00)
[2021-11-20] MEDS: METOPROLOL XL 25 MG TAB PO SCH (09:00)
[2021-11-20] MEDS: Levofloxacin 750mg IV 750 MG/150 ML BAG IV SCH (10:54)
[2021-11-20] MEDS: SODIUM HYPOCHLORITE 0.25% 473 ML TOP SCH (10:54)
[2021-11-20] MEDS: COLLAGENASE 30 GM OINTMENT TOP SCH (10:55)
[2021-11-20] MEDS: KCL 20 MEQ/100 mL IVPB 20 MEQ/100 ML BAG IV SCH ×3 (11:01→18:49)
[2021-11-20] MEDS: ENOXAPARIN 40 MG/0.4 ML SQ SCH (17:50)
[2021-11-21] MEDS: NA CHLORIDE 0.9% 1,000 ML IV SCH ×2 (05:01→20:14)
[2021-11-21] MEDS: PANTOPRAZOLE 40MG TABLET PO SCH (05:01)
[2021-11-21 05:53] LABS: Potassium 3.3 mmol/L (3.5-5.1)
[2021-11-21] MEDS: KCL 20 MEQ/100 mL IVPB 20 MEQ/100 ML BAG IV SCH ×2 (06:18→10:07)
[2021-11-21] MEDS: INSULIN -REGULAR HUMAN 50 UNIT/0.5 ML ML SQ SCH ×4 (07:30→19:53)
--- NOTE | 2021-11-21 08:17 | P.PN ---
Subjective Date of Service: 11/21/21 Primary Care Provider: Delia Chief Complaint: Sepsis secondary to pressure ulcer Subjective: No new changes Review of Systems 10-point ROS is otherwise unremarkable Physical Examination - Vital Signs Temperature: 97.4 F Blood Pressure: 124/61 Pulse: 80 Respirations: 14 Pulse Ox (%): 99 - Physical Exam General: Alert, In no apparent distress, Confused HEENT: Atraumatic, PERRLA, EOMI Neck: Supple, JVD not distended Respiratory: Clear to auscultation bilaterally, Normal air movement Cardiovascular: Regular rate/rhythm, Normal S1 S2 Gastrointestinal: Normal bowel sounds, No tenderness Musculoskeletal: No tenderness Integumentary: No rashes Neurological: Normal speech, Normal tone, Normal affect Lymphatics: No axilla or inguinal lymphadenopathy Assessment And Plan - Current Problems (Diagnosis) (1) Osteomyelitis Current Visit: Yes Status: Acute Plan: Patient has e coli in the wound. multidrug sensitive. We can wait a day for blood and surgical cultures. before starting specific antibiotics. Consider levaquin. she needs snf placement for wound care and 6 weeks of iv antibiotics. 11/21 e.coli, p. mirabalis, e fecalis in the wound cultures Qualifiers: Osteomyelitis type: other acute Laterality: unspecified laterality (2) Delirium Current Visit: Yes Status: Acute Plan: Most likely due to pain and infection. She is responsive and moves all 4 limbs 11/20 She is arousable. Has been in bed for 4 days. Will start by removing oxygen and monitor to make the patient more comfortable. Have PT get her up to chair for an hour. Will need to slowly increase her activity. She has been mostly chair and bed bound for the last few months. (3) Diabetes Current Visit: No Status: Chronic Plan: will keep her on low dose sliding scale. 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 Qualifiers: Hypertension type: primary hypertension Qualified Code(s): I10 - Essential (primary) hypertension (5) Discharge planning issues Current Visit: Yes Status: Acute Plan: will need PT, Wound care and 6 weeks of iv antibiotics. Will discuss with foreign exchange services manager. Discharge Plan: Home Plan to discharge in: 24 Hours - Code Status/Comfort Care Code Status Assessed: No Physician Review: Patient Assessed, Agree with Above Assessment and Plan Critical Care: No Time Spent Managing PTS Care (In Minutes): 25
--- NOTE | 2021-11-21 09:15 | P.PN ---
Subjective Date of Service: 11/21/21 Primary Care Provider: Delia Chief Complaint: Sepsis secondary to pressure ulcer Subjective: Improving Physical Examination - Vital Signs Temperature: 97.4 F Blood Pressure: 124/61 Pulse: 80 Respirations: 14 Pulse Ox (%): 99 - Physical Exam General: Alert, In no apparent distress, Cooperative, Confused Respiratory: Clear to auscultation bilaterally, Normal air movement Cardiovascular: Regular rate/rhythm Gastrointestinal: Soft and benign Integumentary: Other (wound is stable, packed, minimally soiled ) - Studies Microbiology Data (last 24 hrs): 11/17/21 15:12 Wound - Coccyx Culture & Sensitivity - Final Escherichia Coli Proteus Mirabilis Enterococcus Faecalis Assessment And Plan - Current Problems (Diagnosis) (1) Osteomyelitis Current Visit: Yes Status: Acute Plan: - continue wound care per order - pressure reduction with rolling Q2 hrs - air mattress - antibiotics - continue medical management per Dr. Nunez Qualifiers: Osteomyelitis type: other acute Laterality: unspecified laterality Physician Review: Patient Assessed, Agree with Above Assessment and Plan
[2021-11-21] MEDS: INSULIN GLARGINE 100 UNIT/ML SQ SCH (09:57)
[2021-11-21] MEDS: Levofloxacin 750mg IV 750 MG/150 ML BAG IV SCH (10:00)
[2021-11-21] MEDS: METOPROLOL XL 25 MG TAB PO SCH (10:04)
[2021-11-21] MEDS: HYDROMORPHONE HCL 1 MG/ML INJ IV PRN (13:35)
[2021-11-21] MEDS: SODIUM HYPOCHLORITE 0.25% 473 ML TOP SCH (13:40)
[2021-11-21] MEDS: COLLAGENASE 30 GM OINTMENT TOP SCH (13:40)
--- NOTE | 2021-11-21 15:39 | P.DS ---
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 Lin with a history of diabetes, htn and stroke. Mostly bed bound. Had developed a pressure ulcer for which Dr. Lin sent her to the wound care center. She had been started on Santyl last week. The past 3 days the patient has been getting increased more confused. Eating less and getting more combative. She had worsening of the wound bed. Was much deeper on todays exam. Decisison was made with her sister to admit her. Hospital Course: Patient was admitted to the hospital from the wound care center. She had surgical debridement of the wound with Dr Muse. The wound went to the bone. Placement in a snf facility. She will need 6 weeks of iv antibiotics, PT and wound care. The patient was found to have e Coli, pr. Mirabilis and e. Fecalis in the wound culture. All sensitive to levaquin. She was confused in the hospital. However she has been waking up a bit more as the stay increased. Especially with PT. Vital Signs/Physical Exam: Temp Pulse Resp BP Pulse Ox 98.3 F 74 14 140/82 97 11/21/21 11:54 11/21/21 11:54 11/21/21 13:35 11/21/21 11:54 11/21/21 13:35 General: Alert, In no apparent distress HEENT: Atraumatic, PERRLA, EOMI Neck: Supple, JVD not distended Respiratory: Clear to auscultation bilaterally, Normal air movement Cardiovascular: Regular rate/rhythm, Normal S1 S2 Gastrointestinal: Normal bowel sounds, No tenderness Musculoskeletal: No tenderness Integumentary: No rashes Neurological: Normal speech, Normal tone, Normal affect Lymphatics: No axilla or inguinal lymphadenopathy Laboratory Data at Discharge: WBC 9.6 K/uL (4.3-10.9) D 11/20/21 06:01 Hgb 10.5 g/dL (12.0-15.0) L 11/20/21 06:01 Hct 31.4 % (36.0-45.0) L D 11/20/21 06:01 Plt Count 333 K/uL (152-406) 11/20/21 06:01 PT 13.8 SECONDS (9.5-12.5) H 11/17/21 17:32 INR 1.25 11/17/21 17:32 Sodium 136 mmol/L (136-145) 11/21/21 05:19 Potassium 3.3 mmol/L (3.5-5.1) L 11/21/21 05:19 BUN 10 mg/dL (7-18) 11/21/21 05:19 Creatinine 0.71 mg/dL (0.55-1.3) 11/21/21 05:19 Glucose 190 mg/dL (74-106) H 11/21/21 05:19 Magnesium 1.6 mg/dL (1.8-2.4) L 11/17/21 17:32 Total Bilirubin 0.6 mg/dL (0.2-1.0) 11/20/21 06:01 AST 21 U/L (15-37) 11/20/21 06:01 ALT 14 U/L (12-78) 11/20/21 06:01 Alkaline Phosphatase 78 U/L (45-117) 11/20/21 06:01 Home Medications: Aspirin [Aspirin EC 81 MG] 81 mg PO DAILY 11/11/21 Insulin Aspart Prot/Insuln Asp [Novolog Mix 70-30 Flexpen Syrn] 40 unit SQ BEDTIME 11/11/21 Insulin Aspart Prot/Insuln Asp [Novolog Mix 70-30 Flexpen Syrn] 52 unit SQ DAILY 11/11/21 Metolazone [Zaroxolyn] 10 mg PO DAILY 11/11/21 RX: Furosemide 40 mg PO DAILY 11/11/21 RX: Metoprolol Succinate 25 mg PO DAILY 11/11/21 Cholecalciferol (Vitamin D3) [Vitamin D3] 125 mcg PO DAILY 11/18/21 RX: Potassium Gluconate 90 mg PO DAILY 11/18/21 Vitamin B Complex [B-Complex Vitamin] 1 cap PO DAILY 11/18/21 Vitamin E (Dl,Tocopheryl Acet) [Vitamin E] 180 mg PO DAILY 11/18/21 Diet: ADA Activity: Fall precautions Followup: Vishal Ibrahim MD [ACTIVE - CAN ADMIT] - (after discharge from snf facility ) Physician Review: Patient Assessed, Agree with Above Assessment and Plan Time spent managing pt's care (in minutes): 50
[2021-11-21] MEDS ORDERED: KCL 20 MEQ/100 mL IVPB 20 MEQ/100 ML BAG IV SCH (18:00)
[2021-11-21] MEDS: ENOXAPARIN 40 MG/0.4 ML SQ SCH (18:15)
--- NOTE | 2021-11-21 18:43 | RAD REPORT ---
EXAM DESCRIPTION: RAD - Chest Single View - 11/21/2021 6:04 pm CLINICAL HISTORY: PICC line placement COMPARISON: Abdomen 1 View (KUB) dated 11/17/2021; Chest Single View dated 11/17/2021 FINDINGS: Lines: Left subclavian approach PICC with tip overlying the proximal SVC . Lungs: Increased opacities at the left lung base. Pleural: Blunted left costophrenic angle. Cardiac: The heart size is within normal limits. Bones: No acute fractures. Other: IMPRESSION: Increased left basilar opacities which may reflect atelectasis with small effusion. The PICC is in satisfactory position overlying the proximal SVC.
[2021-11-22 05:00] LABS: Potassium 3.6 mmol/L (3.5-5.1)
[2021-11-22] MEDS: PANTOPRAZOLE 40MG TABLET PO SCH (05:05)
[2021-11-22] MEDS: NA CHLORIDE 0.9% 1,000 ML IV SCH ×2 (05:05→20:12)
[2021-11-22] MEDS ORDERED: KCL 20 MEQ/100 mL IVPB 20 MEQ/100 ML BAG IV SCH (06:00)
[2021-11-22] MEDS: INSULIN -REGULAR HUMAN 50 UNIT/0.5 ML ML SQ SCH ×4 (07:30→20:12)
[2021-11-22] MEDS: SODIUM HYPOCHLORITE 0.25% 473 ML TOP SCH (08:24)
[2021-11-22] MEDS: Levofloxacin 750mg IV 750 MG/150 ML BAG IV SCH (08:24)
[2021-11-22] MEDS: COLLAGENASE 30 GM OINTMENT TOP SCH (08:25)
[2021-11-22] MEDS: METOPROLOL XL 25 MG TAB PO SCH (08:25)
[2021-11-22] MEDS: INSULIN GLARGINE 100 UNIT/ML SQ SCH (08:25)
[2021-11-22] MEDS: HYDROMORPHONE HCL 1 MG/ML INJ IV PRN (16:03)
[2021-11-22] MEDS: ENOXAPARIN 40 MG/0.4 ML SQ SCH (16:04)
--- NOTE | 2021-11-22 19:20 | P.PN ---
Subjective Date of Service: 11/22/21 Primary Care Provider: Delia Chief Complaint: osteomyelitis Subjective: Improving Review of Systems 10-point ROS is otherwise unremarkable Neurological: Confusion Physical Examination - Vital Signs Temperature: 97.4 F Blood Pressure: 132/51 Pulse: 71 Respirations: 16 Pulse Ox (%): 99 - Physical Exam General: Alert, In no apparent distress HEENT: Atraumatic, PERRLA, EOMI Neck: Supple, JVD not distended Respiratory: Clear to auscultation bilaterally, Normal air movement Cardiovascular: Regular rate/rhythm, Normal S1 S2 Gastrointestinal: Normal bowel sounds, No tenderness Musculoskeletal: No tenderness Integumentary: No rashes Neurological: Normal speech, Normal tone, Normal affect Lymphatics: No axilla or inguinal lymphadenopathy - Studies Microbiology Data (last 24 hrs): 11/17/21 17:43 Blood - Blood Aerobic Blood Culture - Final No growth in 5 days. 11/17/21 17:43 Blood - Blood Anaerobic Blood Culture - Final No growth in 5 days. 11/17/21 17:31 Blood - Blood Aerobic Blood Culture - Final No growth in 5 days. 11/17/21 17:31 Blood - Blood Anaerobic Blood Culture - Final No growth in 5 days. Assessment And Plan - Current Problems (Diagnosis) (1) Osteomyelitis Current Visit: Yes Status: Acute Plan: Patient has e coli in the wound. multidrug sensitive. We can wait a day for blood and surgical cultures. before starting specific antibiotics. Consider levaquin. she needs snf placement for wound care and 6 weeks of iv antibiotics. 11/22 on appropriate antibiotics. Will await snf placement Qualifiers: Osteomyelitis type: other acute Laterality: unspecified laterality (2) Delirium Current Visit: Yes Status: Acute Plan: Most likely due to pain and infection. She is responsive and moves all 4 limbs 11/20 She is arousable. Has been in bed for 4 days. Will start by removing oxygen and monitor to make the patient more comfortable. Have PT get her up to chair for an hour. Will need to slowly increase her activity. She has been mostly chair and bed bound for the last few months. (3) Diabetes Current Visit: No Status: Chronic Plan: will keep her on low dose sliding scale. Qualifiers: Diabetes mellitus type: type 2 Diabetes mellitus watermelon inspector insulin use: with fdc use Diabetes mellitus complication status: without complication Qualified Code(s): E11.9 - Type 2 diabetes mellitus without complications; Z79.4 - intermediate (current) use of insulin (4) Hypertension Current Visit: No Status: Chronic Plan: restart her metoprolol. Qualifiers: Hypertension type: primary hypertension Qualified Code(s): I10 - Essential (primary) hypertension (5) Discharge planning issues Current Visit: Yes Status: Acute Plan: will need PT, Wound care and 6 weeks of iv antibiotics. Will discuss with volunteer services supervisor. Discharge Plan: LTAC Plan to discharge in: Greater than 2 days - Code Status/Comfort Care Code Status Assessed: No Physician Review: Patient Assessed, Agree with Above Assessment and Plan Critical Care: No Time Spent Managing PTS Care (In Minutes): 15
[2021-11-23 04:55] LABS: Potassium 3.9 mmol/L (3.5-5.1)
[2021-11-23] MEDS: PANTOPRAZOLE 40MG TABLET PO SCH (06:30)
[2021-11-23] MEDS: INSULIN -REGULAR HUMAN 50 UNIT/0.5 ML ML SQ SCH ×4 (07:30→20:13)
[2021-11-23] MEDS: Levofloxacin 750mg IV 750 MG/150 ML BAG IV SCH (08:33)
[2021-11-23] MEDS: SODIUM HYPOCHLORITE 0.25% 473 ML TOP SCH (08:34)
[2021-11-23] MEDS: COLLAGENASE 30 GM OINTMENT TOP SCH (08:34)
[2021-11-23] MEDS: INSULIN GLARGINE 100 UNIT/ML SQ SCH (08:35)
[2021-11-23] MEDS: NA CHLORIDE 0.9% 1,000 ML IV SCH ×2 (09:20→13:28)
[2021-11-23] MEDS: ACETAMINOPHEN 500 MG TAB PO PRN (09:50)
[2021-11-23] MEDS: METOPROLOL XL 25 MG TAB PO SCH (09:54)
--- NOTE | 2021-11-23 13:22 | P.PN ---
Subjective Date of Service: 11/23/21 Primary Care Provider: Delia Chief Complaint: osteomyelitis Subjective: No new changes Review of Systems 10-point ROS is otherwise unremarkable Physical Examination - Vital Signs Temperature: 97.7 F Blood Pressure: 105/62 Pulse: 59 Respirations: 18 Pulse Ox (%): 98 - Physical Exam General: Alert, In no apparent distress HEENT: Atraumatic, PERRLA, EOMI Neck: Supple, JVD not distended Respiratory: Clear to auscultation bilaterally, Normal air movement Cardiovascular: Regular rate/rhythm, Normal S1 S2 Gastrointestinal: Normal bowel sounds, No tenderness Musculoskeletal: No tenderness Integumentary: No rashes Neurological: Normal speech, Normal tone, Normal affect Lymphatics: No axilla or inguinal lymphadenopathy - Studies Microbiology Data (last 24 hrs): 11/17/21 17:43 Blood - Blood Aerobic Blood Culture - Final No growth in 5 days. 11/17/21 17:43 Blood - Blood Anaerobic Blood Culture - Final No growth in 5 days. 11/17/21 17:31 Blood - Blood Aerobic Blood Culture - Final No growth in 5 days. 11/17/21 17:31 Blood - Blood Anaerobic Blood Culture - Final No growth in 5 days. Assessment And Plan - Current Problems (Diagnosis) (1) Osteomyelitis Current Visit: Yes Status: Acute Plan: Patient has e coli in the wound. multidrug sensitive. We can wait a day for blood and surgical cultures. before starting specific antibiotics. Consider levaquin. she needs snf placement for wound care and 6 weeks of iv antibiotics. 11/22 on appropriate antibiotics. Will await snf placement Qualifiers: Osteomyelitis type: other acute Laterality: unspecified laterality (2) Delirium Current Visit: Yes Status: Acute Plan: Most likely due to pain and infection. She is responsive and moves all 4 limbs 11/20 She is arousable. Has been in bed for 4 days. Will start by removing oxygen and monitor to make the patient more comfortable. Have PT get her up to chair for an hour. Will need to slowly increase her activity. She has been mostly chair and bed bound for the last few months. (3) Diabetes Current Visit: No Status: Chronic Plan: will keep her on low dose sliding scale. Qualifiers: Diabetes mellitus type: type 2 Diabetes mellitus diamond expert insulin use: with diamond expert use Diabetes mellitus complication status: without complication Qualified Code(s): E11.9 - Type 2 diabetes mellitus without complications; Z79.4 - residential (current) use of insulin (4) Hypertension Current Visit: No Status: Chronic Plan: restart her metoprolol. Qualifiers: Hypertension type: primary hypertension Qualified Code(s): I10 - Essential (primary) hypertension (5) Discharge planning issues Current Visit: Yes Status: Acute Plan: will need PT, Wound care and 6 weeks of iv antibiotics. Will discuss with pupil personnel services director. Plan to discharge in: Greater than 2 days - Code Status/Comfort Care Code Status Assessed: No Physician Review: Patient Assessed, Agree with Above Assessment and Plan Critical Care: No Time Spent Managing PTS Care (In Minutes): 20
[2021-11-23] MEDS: ENOXAPARIN 40 MG/0.4 ML SQ SCH (17:22)
[2021-11-24] MEDS: NA CHLORIDE 0.9% 1,000 ML IV SCH ×3 (01:45→16:40)
[2021-11-24] MEDS: PANTOPRAZOLE 40MG TABLET PO SCH (06:21)
[2021-11-24] MEDS: INSULIN -REGULAR HUMAN 50 UNIT/0.5 ML ML SQ SCH ×4 (07:30→20:58)
[2021-11-24] MEDS: Levofloxacin 750mg IV 750 MG/150 ML BAG IV SCH (08:05)
[2021-11-24] MEDS: INSULIN GLARGINE 100 UNIT/ML SQ SCH (08:06)
[2021-11-24] MEDS: SODIUM HYPOCHLORITE 0.25% 473 ML TOP SCH (08:06)
[2021-11-24] MEDS: METOPROLOL XL 25 MG TAB PO SCH (08:06)
[2021-11-24] MEDS: COLLAGENASE 30 GM OINTMENT TOP SCH (08:07)
--- NOTE | 2021-11-24 10:20 | P.PN ---
Subjective Date of Service: 11/24/21 Primary Care Provider: Delia Chief Complaint: osteomyelitis Subjective: No new changes Review of Systems 10-point ROS is otherwise unremarkable Neurological: Confusion Physical Examination - Vital Signs Temperature: 97.7 F Blood Pressure: 138/45 Pulse: 67 Respirations: 18 Pulse Ox (%): 94 - Physical Exam General: Alert, In no apparent distress, Confused HEENT: Atraumatic, PERRLA, EOMI Neck: Supple, JVD not distended Respiratory: Clear to auscultation bilaterally, Normal air movement Cardiovascular: Regular rate/rhythm, Normal S1 S2 Gastrointestinal: Normal bowel sounds, No tenderness Musculoskeletal: No tenderness Integumentary: No rashes Neurological: Normal speech, Normal tone, Normal affect Lymphatics: No axilla or inguinal lymphadenopathy Assessment And Plan - Current Problems (Diagnosis) (1) Osteomyelitis Current Visit: Yes Status: Acute Plan: Patient has e coli in the wound. multidrug sensitive. We can wait a day for blood and surgical cultures. before starting specific antibiotics. Consider nate matos. she needs snf placement for wound care and 6 weeks of iv antibiotics. 11/24 awaiting placement Qualifiers: Osteomyelitis type: other acute Laterality: unspecified laterality (2) Delirium Current Visit: Yes Status: Acute Plan: Most likely due to pain and infection. She is responsive and moves all 4 limbs 11/20 She is arousable. Has been in bed for 4 days. Will start by removing oxygen and monitor to make the patient more comfortable. Have PT get her up to chair for an hour. Will need to slowly increase her activity. She has been mostly chair and bed bound for the last few months. (3) Diabetes Current Visit: No Status: Chronic Plan: will keep her on low dose sliding scale. Qualifiers: Diabetes mellitus type: type 2 Diabetes mellitus skilled nursing insulin use: with rn long term care use Diabetes mellitus complication status: without complication Qualified Code(s): E11.9 - Type 2 diabetes mellitus without complications; Z79.4 - computer terminal operator (current) use of insulin (4) Hypertension Current Visit: No Status: Chronic Plan: restart her metoprolol. Qualifiers: Hypertension type: primary hypertension Qualified Code(s): I10 - Essential (primary) hypertension (5) Discharge planning issues Current Visit: Yes Status: Acute Plan: will need PT, Wound care and 6 weeks of iv antibiotics. Will discuss with guest services manager. Discharge Plan: LTAC Plan to discharge in: 24 Hours - Code Status/Comfort Care Code Status Assessed: No Physician Review: Patient Assessed, Agree with Above Assessment and Plan Critical Care: No Time Spent Managing PTS Care (In Minutes): 15
[2021-11-24] MEDS: ENOXAPARIN 40 MG/0.4 ML SQ SCH (16:21)
[2021-11-24] MEDS: ACETAMINOPHEN 500 MG TAB PO PRN (23:15)
[2021-11-25] MEDS: PANTOPRAZOLE 40MG TABLET PO SCH (05:53)
[2021-11-25] MEDS: NA CHLORIDE 0.9% 1,000 ML IV SCH ×2 (05:54→14:40)
[2021-11-25] MEDS: INSULIN -REGULAR HUMAN 50 UNIT/0.5 ML ML SQ SCH ×4 (07:30→20:31)
[2021-11-25] MEDS: Levofloxacin 750mg IV 750 MG/150 ML BAG IV SCH (08:39)
[2021-11-25] MEDS: METOPROLOL XL 25 MG TAB PO SCH (08:39)
[2021-11-25] MEDS: SODIUM HYPOCHLORITE 0.25% 473 ML TOP SCH (08:41)
[2021-11-25] MEDS: INSULIN GLARGINE 100 UNIT/ML SQ SCH (08:41)
[2021-11-25] MEDS: COLLAGENASE 30 GM OINTMENT TOP SCH (08:41)
--- NOTE | 2021-11-25 08:45 | P.PN ---
Subjective Date of Service: 11/25/21 Primary Care Provider: Delia Chief Complaint: osteomyelitis Subjective: No new changes Review of Systems 10-point ROS is otherwise unremarkable Physical Examination - Vital Signs Temperature: 97.4 F Blood Pressure: 137/61 Pulse: 59 Respirations: 18 Pulse Ox (%): 100 - Physical Exam General: Alert, In no apparent distress HEENT: Atraumatic, PERRLA, EOMI Neck: Supple, JVD not distended Respiratory: Clear to auscultation bilaterally, Normal air movement Cardiovascular: Regular rate/rhythm, Normal S1 S2 Gastrointestinal: Normal bowel sounds, No tenderness Musculoskeletal: No tenderness Integumentary: No rashes Neurological: Normal speech, Normal tone, Normal affect Lymphatics: No axilla or inguinal lymphadenopathy Assessment And Plan - Current Problems (Diagnosis) (1) Osteomyelitis Current Visit: Yes Status: Acute Plan: Patient has e coli in the wound. multidrug sensitive. We can wait a day for blood and surgical cultures. before starting specific antibiotics. Consider levaquin. she needs snf placement for wound care and 6 weeks of iv antibiotics. 11/25 Patient is ready for discharge when bed avalible. Qualifiers: Osteomyelitis type: other acute Laterality: unspecified laterality (2) Delirium Current Visit: Yes Status: Acute Plan: Most likely due to pain and infection. She is responsive and moves all 4 limbs 11/20 She is arousable. Has been in bed for 4 days. Will start by removing oxygen and monitor to make the patient more comfortable. Have PT get her up to chair for an hour. Will need to slowly increase her activity. She has been mostly chair and bed bound for the last few months. (3) Diabetes Current Visit: No Status: Chronic Plan: will keep her on low dose sliding scale. Qualifiers: Diabetes mellitus type: type 2 Diabetes mellitus [facility] insulin use: with long term care administrator use Diabetes mellitus complication status: without complication Qualified Code(s): E11.9 - Type 2 diabetes mellitus without complications; Z79.4 - custodial (current) use of insulin (4) Hypertension Current Visit: No Status: Chronic Plan: restart her metoprolol. Qualifiers: Hypertension type: primary hypertension Qualified Code(s): I10 - Essential (primary) hypertension (5) Discharge planning issues Current Visit: Yes Status: Acute Plan: will need PT, Wound care and 6 weeks of iv antibiotics. Will discuss with staff services manager. Discharge Plan: LTAC - Code Status/Comfort Care Code Status Assessed: No Physician Review: Patient Assessed, Agree with Above Assessment and Plan Critical Care: No Time Spent Managing PTS Care (In Minutes): 20
[2021-11-25] MEDS: ACETAMINOPHEN 500 MG TAB PO PRN (11:27)
[2021-11-25] MEDS: HYDROMORPHONE HCL 1 MG/ML INJ IV PRN (16:26)
[2021-11-25] MEDS: ENOXAPARIN 40 MG/0.4 ML SQ SCH (16:26)
[2021-11-26] MEDS: NA CHLORIDE 0.9% 1,000 ML IV SCH ×3 (01:57→17:39)
[2021-11-26] MEDS: HYDROCODONE/APAP 7.5/325 MG TAB PO PRN (02:57)
[2021-11-26] MEDS: PANTOPRAZOLE 40MG TABLET PO SCH (06:09)
[2021-11-26] MEDS: INSULIN -REGULAR HUMAN 50 UNIT/0.5 ML ML SQ SCH ×4 (07:30→21:00)
--- NOTE | 2021-11-26 08:30 | P.PN ---
Subjective Date of Service: 11/26/21 Primary Care Provider: Delia Chief Complaint: osteomyelitis Subjective: No new changes Review of Systems 10-point ROS is otherwise unremarkable Neurological: Confusion Physical Examination - Vital Signs Temperature: 97.0 F Blood Pressure: 102/61 Pulse: 70 Respirations: 17 Pulse Ox (%): 96 - Physical Exam General: Alert, In no apparent distress, Confused HEENT: Atraumatic, PERRLA, EOMI Neck: Supple, JVD not distended Respiratory: Clear to auscultation bilaterally, Normal air movement Cardiovascular: Regular rate/rhythm, Normal S1 S2 Gastrointestinal: Normal bowel sounds, No tenderness Musculoskeletal: No tenderness Integumentary: No rashes Neurological: Normal speech, Normal tone, Normal affect Lymphatics: No axilla or inguinal lymphadenopathy Assessment And Plan - Current Problems (Diagnosis) (1) Osteomyelitis Current Visit: Yes Status: Acute Plan: Patient has e coli in the wound. multidrug sensitive. We can wait a day for blood and surgical cultures. before starting specific antibiotics. Consider nate shawna. she needs snf placement for wound care and 6 weeks of iv antibiotics. 11/25 Patient is ready for discharge when bed avalible. Qualifiers: Osteomyelitis type: other acute Laterality: unspecified laterality (2) Delirium Current Visit: Yes Status: Acute Plan: Most likely due to pain and infection. She is responsive and moves all 4 limbs 11/20 She is arousable. Has been in bed for 4 days. Will start by removing oxygen and monitor to make the patient more comfortable. Have PT get her up to chair for an hour. Will need to slowly increase her activity. She has been mostly chair and bed bound for the last few months. (3) Diabetes Current Visit: No Status: Chronic Plan: will keep her on low dose sliding scale. Qualifiers: Diabetes mellitus type: type 2 Diabetes mellitus fdc insulin use: with fdc use Diabetes mellitus complication status: without complication Qualified Code(s): E11.9 - Type 2 diabetes mellitus without complications; Z79.4 - long term care administrator (current) use of insulin (4) Hypertension Current Visit: No Status: Chronic Plan: restart her metoprolol. Qualifiers: Hypertension type: primary hypertension Qualified Code(s): I10 - Essential (primary) hypertension (5) Discharge planning issues Current Visit: Yes Status: Acute Plan: will need PT, Wound care and 6 weeks of iv antibiotics. Will discuss with emergency services director. Discharge Plan: Home - Code Status/Comfort Care Code Status Assessed: No Physician Review: Patient Assessed, Agree with Above Assessment and Plan Critical Care: No Time Spent Managing PTS Care (In Minutes): 20
[2021-11-26] MEDS: Levofloxacin 750mg IV 750 MG/150 ML BAG IV SCH (08:43)
[2021-11-26] MEDS: METOPROLOL XL 25 MG TAB PO SCH (08:43)
[2021-11-26] MEDS: INSULIN GLARGINE 100 UNIT/ML SQ SCH (08:44)
[2021-11-26] MEDS: SODIUM HYPOCHLORITE 0.25% 473 ML TOP SCH (08:44)
[2021-11-26] MEDS: COLLAGENASE 30 GM OINTMENT TOP SCH (08:44)
--- NOTE | 2021-11-26 14:54 | P.DS ---
Admission Date: 11/17/21 Discharge Date: 11/26/21 Primary Care Provider: Delia Disposition: INTERMEDIATE ACUTE CARE FACILITY Discharge Condition: GOOD Reason for Admission: osteomyelitis - Problems (1) Osteomyelitis Current Visit: Yes Status: Acute Qualifiers: Osteomyelitis type: other acute Laterality: unspecified laterality (2) Delirium Current Visit: Yes Status: Acute (3) Diabetes Current Visit: No Status: Chronic Qualifiers: Diabetes mellitus type: type 2 Diabetes mellitus predatory animal exterminator insulin use: wit h predatory animal exterminator use Diabetes mellitus complication status: without complication Qualified Code(s): E11.9 - Type 2 diabetes mellitus without complications; Z79.4 - extermination inspector (current) use of insulin (4) Hypertension Current Visit: No Status: Chronic Qualifiers: Hypertension type: primary hypertension Qualified Code(s): I10 - Essential (primary) hypertension (5) Discharge planning issues Current Visit: Yes Status: Acute Brief History of Present Illness: Patient of Dr. Lin with a history of diabetes, htn and stroke. Mostly bed bound. Had developed a pressure ulcer for which Dr. Lin sent her to the wound care center. She had been started on Santyl last week. The past 3 days the patient has been getting increased more confused. Eating less and getting more combative. She had worsening of the wound bed. Was much deeper on todays exam. Decisison was made with her sister to admit her. Hospital Course: Patient was admitted to the hospital from the wound care center. She had surgical debridement of the wound with Dr Muse. The wound went to the bone. Placement in a snf facility. She will need 6 weeks of iv antibiotics, PT and wound care. The patient was found to have e Coli, pr. Mirabilis and e. Fecalis in the wound culture. All sensitive to levaquin. She was confused in the hospital. However she has been waking up a bit more as the stay increased. Especially with PT. 11/26/21 [facility]. Vital Signs/Physical Exam: Temp Pulse Resp BP Pulse Ox 97.0 F 77 17 129/64 96 11/26/21 08:30 11/26/21 08:43 11/26/21 08:30 11/26/21 08:43 11/26/21 08:30 General: Alert, In no apparent distress HEENT: Atraumatic, PERRLA, EOMI Neck: Supple, JVD not distended Respiratory: Clear to auscultation bilaterally, Normal air movement Cardiovascular: Regular rate/rhythm, Normal S1 S2 Gastrointestinal: Normal bowel sounds, No tenderness Musculoskeletal: No tenderness Integumentary: No rashes Neurological: Normal speech, Normal tone, Normal affect Lymphatics: No axilla or inguinal lymphadenopathy Laboratory Data at Discharge: WBC 9.6 K/uL (4.3-10.9) D 11/20/21 06:01 Hgb 10.5 g/dL (12.0-15.0) L 11/20/21 06:01 Hct 31.4 % (36.0-45.0) L D 11/20/21 06:01 Plt Count 333 K/uL (152-406) 11/20/21 06:01 PT 13.8 SECONDS (9.5-12.5) H 11/17/21 17:32 INR 1.25 11/17/21 17:32 Sodium 133 mmol/L (136-145) L 11/23/21 04:25 Potassium 3.9 mmol/L (3.5-5.1) 11/23/21 04:25 BUN 9 mg/dL (7-18) 11/23/21 04:25 Creatinine 0.72 mg/dL (0.55-1.3) 11/23/21 04:25 Glucose 174 mg/dL (74-106) H 11/23/21 04:25 Magnesium 1.6 mg/dL (1.8-2.4) L 11/17/21 17:32 Total Bilirubin 0.6 mg/dL (0.2-1.0) 11/20/21 06:01 AST 21 U/L (15-37) 11/20/21 06:01 ALT 14 U/L (12-78) 11/20/21 06:01 Alkaline Phosphatase 78 U/L (45-117) 11/20/21 06:01 Home Medications: Aspirin [Aspirin EC 81 MG] 81 mg PO DAILY 11/11/21 Furosemide 40 mg PO DAILY 11/11/21 Insulin Aspart Prot/Insuln Asp [Novolog Mix 70-30 Flexpen Syrn] 40 unit SQ BEDTIME 11/11/21 Insulin Aspart Prot/Insuln Asp [Novolog Mix 70-30 Flexpen Syrn] 52 unit SQ DAILY 11/11/21 Metolazone [Zaroxolyn] 10 mg PO DAILY 11/11/21 Metoprolol Succinate 25 mg PO DAILY 11/11/21 Cholecalciferol (Vitamin D3) [Vitamin D3] 125 mcg PO DAILY 11/18/21 Potassium Gluconate 90 mg PO DAILY 11/18/21 Vitamin B Complex [B-Complex Vitamin] 1 cap PO DAILY 11/18/21 Vitamin E (Dl,Tocopheryl Acet) [Vitamin E] 180 mg PO DAILY 11/18/21 Diet: ADA Activity: Fall precautions Followup: Vishal Ibrahim MD [ACTIVE - CAN ADMIT] - (after discharge from snf facility ) Time spent managing pt's care (in minutes): 40
[2021-11-26] MEDS: ENOXAPARIN 40 MG/0.4 ML SQ SCH (16:27)
[2021-11-27] MEDS: PANTOPRAZOLE 40MG TABLET PO SCH (06:11)
[2021-11-27] MEDS: NA CHLORIDE 0.9% 1,000 ML IV SCH ×3 (06:40→23:31)
[2021-11-27] MEDS: INSULIN -REGULAR HUMAN 50 UNIT/0.5 ML ML SQ SCH ×4 (07:30→23:27)
[2021-11-27] MEDS: Levofloxacin 750mg IV 750 MG/150 ML BAG IV SCH (08:48)
[2021-11-27] MEDS: METOPROLOL XL 25 MG TAB PO SCH (08:49)
[2021-11-27] MEDS: INSULIN GLARGINE 100 UNIT/ML SQ SCH (08:50)
[2021-11-27] MEDS: SODIUM HYPOCHLORITE 0.25% 473 ML TOP SCH (08:51)
[2021-11-27] MEDS: COLLAGENASE 30 GM OINTMENT TOP SCH (08:51)
--- NOTE | 2021-11-27 09:20 | P.PN ---
Subjective Date of Service: 11/27/21 Primary Care Provider: Delia Chief Complaint: osteomyelitis Subjective: New changes (delirum) Review of Systems is unable to be obtained Physical Examination - Vital Signs Temperature: 98.4 F Blood Pressure: 131/63 Pulse: 69 Respirations: 20 Pulse Ox (%): 95 - Physical Exam General: Delirious HEENT: Atraumatic, PERRLA, EOMI Neck: Supple, JVD not distended Respiratory: Clear to auscultation bilaterally, Normal air movement Cardiovascular: Regular rate/rhythm, Normal S1 S2 Gastrointestinal: Normal bowel sounds, No tenderness Musculoskeletal: No tenderness Integumentary: No rashes Neurological: Normal speech, Normal tone, Normal affect Lymphatics: No axilla or inguinal lymphadenopathy Assessment And Plan - Current Problems (Diagnosis) (1) COVID-19 Current Visit: Yes Status: Acute Plan: Patient tested positive for covid yesterday. Discharge held. Will need to check her vaccination status. No respiratory problems at this time. (2) Delirium Current Visit: Yes Status: Acute Plan: Most likely due to pain and infection. She is responsive and moves all 4 limbs / Patient was not able to wake up when I visited this morning at 845. Nursing reports she was alert 15 min later. this may be due to covid encephalitis, osteomylitis or underlying cognitive impairment worsened by hospital stay. Have discussed the patient with Dr Lane. Will order an EEG and MRI at his advise. Will have Dr. Lane see the patient. Hold off for now on Lumbar puncture or steroids. Will discuss further with Dr. Lane. (3) Osteomyelitis Current Visit: Yes Status: Acute Plan: Patient has e coli in the wound. multidrug sensitive. We can wait a day for blood and surgical cultures. before starting specific antibiotics. Consider levaquin. she needs snf placement for wound care and 6 weeks of iv antibiotics. 11/25 Patient is ready for discharge when bed avalible. Qualifiers: Osteomyelitis type: other acute Laterality: unspecified laterality (4) Diabetes Current Visit: No Status: Chronic Plan: will keep her on low dose sliding scale. Qualifiers: Diabetes mellitus type: type 2 Diabetes mellitus [facility] insulin use: with buttermaker continuous churn use Diabetes mellitus complication status: without complication Qualified Code(s): E11.9 - Type 2 diabetes mellitus without complications; Z79.4 - ad terminal makeup operator (current) use of insulin (5) Hypertension Current Visit: No Status: Chronic Plan: restart her metoprolol. Qualifiers: Hypertension type: primary hypertension Qualified Code(s): I10 - Essential (primary) hypertension (6) Discharge planning issues Current Visit: Yes Status: Acute Plan: will need PT, Wound care and 6 weeks of iv antibiotics. Will discuss with nutrition services assistant. Discharge Plan: LTAC Plan to discharge in: Greater than 2 days - Code Status/Comfort Care Code Status Assessed: No Physician Review: Patient Assessed, Agree with Above Assessment and Plan Critical Care: No Time Spent Managing PTS Care (In Minutes): 40
[2021-11-27] MEDS: ENOXAPARIN 40 MG/0.4 ML SQ SCH (17:38)
[2021-11-28] MEDS: PANTOPRAZOLE 40MG TABLET PO SCH (06:06)
[2021-11-28 06:25] LABS: Absolute Lymphocytes (CBC) 1.6 K/uL (0.7-4.9); Hematocrit 30.9 % (36.0-45.0); Lymphocytes % 15.9 % (15.3-44.8); MPV 6.4 fL (7.6-11.3); RBC Red Blood Cell Count 3.54 M/uL (3.86-4.86)
[2021-11-28 06:33] LABS: Bilirubin Total 0.7 mg/dL (0.2-1.0); Potassium 3.5 mmol/L (3.5-5.1); Protein, Total 5.6 g/dL (6.4-8.2)
[2021-11-28] MEDS: INSULIN -REGULAR HUMAN 50 UNIT/0.5 ML ML SQ SCH ×4 (07:30→22:25)
[2021-11-28] MEDS: Levofloxacin 750mg IV 750 MG/150 ML BAG IV SCH (08:41)
[2021-11-28] MEDS: INSULIN GLARGINE 100 UNIT/ML SQ SCH ×2 (08:41→09:00)
[2021-11-28] MEDS: METOPROLOL XL 25 MG TAB PO SCH (08:42)
[2021-11-28] MEDS: COLLAGENASE 30 GM OINTMENT TOP SCH (08:42)
[2021-11-28] MEDS: SODIUM HYPOCHLORITE 0.25% 473 ML TOP SCH (08:43)
[2021-11-28] MEDS ORDERED: POTASSIUM 25 MEQ EFFERV TAB PO ONE (09:00)
[2021-11-28] MEDS: NA CHLORIDE 0.9% 1,000 ML IV SCH ×2 (09:20→15:02)
[2021-11-28] MEDS ORDERED: ZIPRASIDONE MESYLA 20 MG/VIAL IM ONE (12:53)
[2021-11-28] MEDS ORDERED: WATER FOR INJ,STERILE 10 ML IM PRN (12:53)
--- NOTE | 2021-11-28 13:06 | P.PN ---
Subjective Date of Service: 11/28/21 Primary Care Provider: Delia Chief Complaint: osteomyelitis Subjective: Worsening (worsening delirium) Review of Systems is unable to be obtained Physical Examination - Vital Signs Temperature: 97.5 F Blood Pressure: 93/62 Pulse: 86 Respirations: 16 Pulse Ox (%): 97 - Physical Exam General: Delirious HEENT: Atraumatic, PERRLA, EOMI Neck: Supple, JVD not distended Respiratory: Clear to auscultation bilaterally, Normal air movement Cardiovascular: Regular rate/rhythm, Normal S1 S2 Gastrointestinal: Normal bowel sounds, No tenderness Musculoskeletal: No tenderness Integumentary: No rashes Neurological: Normal speech, Normal tone, Normal affect Lymphatics: No axilla or inguinal lymphadenopathy Assessment And Plan - Current Problems (Diagnosis) (1) COVID-19 Current Visit: Yes Status: Acute Plan: Patient tested positive for covid yesterday. Discharge held. Will need to check her vaccination status. No respiratory problems at this time. (2) Delirium Current Visit: Yes Status: Acute Plan: Most likely due to pain and infection. She is responsive and moves all 4 limbs / discussed with Dr. Lane. Will start her on steroid and geodan. Try getting an MRi. This may be covid encephalitis so will try some steroids (3) Osteomyelitis Current Visit: Yes Status: Acute Plan: Patient has e coli in the wound. multidrug sensitive. We can wait a day for blood and surgical cultures. before starting specific antibiotics. Consider nate matos. she needs snf placement for wound care and 6 weeks of iv antibiotics. 11/25 Patient is ready for discharge when bed avalible. Qualifiers: Osteomyelitis type: other acute Laterality: unspecified laterality (4) Diabetes Current Visit: No Status: Chronic Plan: will keep her on low dose sliding scale. Qualifiers: Diabetes mellitus type: type 2 Diabetes mellitus intermediate insulin use: with termite helper use Diabetes mellitus complication status: without complication Qualified Code(s): E11.9 - Type 2 diabetes mellitus without complications; Z79.4 - shelter (current) use of insulin (5) Hypertension Current Visit: No Status: Chronic Plan: restart her metoprolol. Qualifiers: Hypertension type: primary hypertension Qualified Code(s): I10 - Essential (primary) hypertension (6) Discharge planning issues Current Visit: Yes Status: Acute Plan: will need PT, Wound care and 6 weeks of iv antibiotics. Will discuss with transportation services representative. Discharge Plan: LTAC Plan to discharge in: Greater than 2 days - Code Status/Comfort Care Code Status Assessed: No Physician Review: Patient Assessed, Agree with Above Assessment and Plan Critical Care: No Time Spent Managing PTS Care (In Minutes): 30
[2021-11-28] MEDS: ENOXAPARIN 40 MG/0.4 ML SQ SCH (16:24)
[2021-11-28] MEDS: METHYLPREDNISOLONE 40 MG INJ IV SCH (16:24)
--- NOTE | 2021-11-29 00:33 | CON ---
Date of Consultation: 11/28/2021 Reason For Consultation: Consultation called because of altered mental status. History Of Present Illness: Ms. Green is an 86-year-old patient who comes to [facility] with a pressure decubitus ulcer that developed into sepsis with multiorgan etiology including Enterococcus faecalis, Proteus mirabilis, and Escherichia coli. She has had positive procalcitonin a nd lactic acid and her admission was last month at the end of October and she is on antibiotics per the I D and hospitalists. She has failed to return to her baseline with disorientation, agitation, confusi on, and not following instructions at times. However, at other times she is more responsive and appr opriate. MRI of the brain was ordered, but not yet done due to agitation. She has received neurolep tic medication, but is still agitated. She has not had a CT scan of the head and MRI is pending. Past Medical History: As noted and diabetes mellitus along with hypertension. Allergies: CODEINE. Medications: At home are aspirin 81 mg daily, furosemide 40 mg daily, Novolin 70/30 with 40 units underwood bcutaneously at bedtime and 50 units subcutaneously daily, metolazone 10 mg daily, metoprolol 25 mg d aily, vitamin D3 125 mcg daily, potassium gluconate 90 mg daily, vitamin B complex 1 daily, vitamin E 180 mg daily. Past Surgical History: Cholecystectomy. Family History: Diabetes in mother, sister, and brother. Social History: No alcohol, tobacco, or IV drug use. Review of Systems: The patient at this point, does not respond to verbal stimulation except for more grunts, barely open ed the eyes, and has mild attempts at moving the arms and legs. Physical Examination: Vital Signs: Blood pressure 134/83, pulse 86 up to 103, respiratory rate 14 to 18, temperature 97.6, oxygen saturation 97% on room air. Weight 204 pounds, height 5 feet 7 inches, BMI 32. General: Ms. Green is resting in her bed. She is making groaning sounds. She did attempt to open t he eyes when asked to and moved a hand when asked to, but barely moving the arms or legs. There is n o asymmetry noted in her face, arms, or legs in terms of the ability to move them. HEENT: She is normocephalic, atraumatic. Sclerae appear anicteric. Neck: Supple. Chest: Clear. Abdomen: Soft. Neurological: As noted, she is lying in bed on the right side. She did respond to her name with gru nts and attempted to open the eyes and when instructed to move the arms, she did move very subtly bot h sides and the legs bilaterally. No focal findings on exam with withdrawal, tone, and reflexes. Laboratory Studies: She most recently has normal sodium, potassium, chloride, BUN, and creatinine. Glucose ranged from 156-173, calcium 9.1. AST, ALT, and alkaline phosphate are unremarkable. White blood cell count is now normal at 10.2 today on 11/28/2021 and on 11/18/2021 it was 24.1 with 91.3% n eutrophils and now it is 74.3% neutrophils and hemoglobin 10.6. Assessment: Ms. 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 It is unclear if she has a baseline dementia. She is not yet cleared despite improved white blood cell cou nt of normal and electrolytes too normal. She had severe hypokalemia and other multi electrolyte abn ormalities earlier along with sepsis as shown by positive procalcitonin and lactic acid and elevated white blood cell. Her EEG did show a mildly slow background with occasional frontal slow activity, b ut otherwise an occipital dominant rhythm was in the normal range. There were no epileptiform discha rges. Plan: 1.Continue supportive care and we will obtain MRI of the brain when possible to rule out ischemic st roke. 2.She may require aggressive physical therapy as she is now in hospital for 10 days and not ambulating. Further she has decubital ulcer, which should be offloaded and followed by Wound Care. LB/MODL Voice ID: [id number] Report ID: [id number]
[2021-11-29] MEDS: METHYLPREDNISOLONE 40 MG INJ IV SCH ×3 (01:33→18:03)
[2021-11-29] MEDS: NA CHLORIDE 0.9% 1,000 ML IV SCH ×2 (01:58→22:54)
[2021-11-29] MEDS: PANTOPRAZOLE 40MG TABLET PO SCH (06:40)
[2021-11-29 06:55] LABS: Absolute Lymphocytes (CBC) 0.4 K/uL (0.7-4.9); Hematocrit 34.2 % (36.0-45.0); Lymphocytes % 3.9 % (15.3-44.8); MPV 6.3 fL (7.6-11.3); RBC Red Blood Cell Count 3.93 M/uL (3.86-4.86)
[2021-11-29 07:07] LABS: Albumin 2.2 g/dL (3.4-5.0); Bilirubin Total 0.8 mg/dL (0.2-1.0); Potassium 3.7 mmol/L (3.5-5.1); Protein, Total 6.2 g/dL (6.4-8.2)
[2021-11-29] MEDS: METOPROLOL XL 25 MG TAB PO SCH ×2 (09:00→09:36)
[2021-11-29 09:06] LABS: Anisocytosis 1+; Blood Morphology Comment NOTED (NOT SEEN); Hypochromasia 1+; Macrocytosis 1+; Platelet Estimate ADEQ; White Blood Cell Scan OK (OK)
[2021-11-29] MEDS: Levofloxacin 750mg IV 750 MG/150 ML BAG IV SCH (09:35)
[2021-11-29] MEDS: INSULIN GLARGINE 100 UNIT/ML SQ SCH (09:36)
[2021-11-29] MEDS: INSULIN -REGULAR HUMAN 50 UNIT/0.5 ML ML SQ SCH ×4 (09:37→21:07)
--- NOTE | 2021-11-29 14:09 | P.PN ---
Subjective Date of Service: 11/29/21 Primary Care Provider: Delia Chief Complaint: osteomyelitis Subjective: Worsening (Patient was more confused today) Review of Systems is unable to be obtained Physical Examination - Vital Signs Temperature: 96.9 F Blood Pressure: 154/58 Pulse: 81 Respirations: 20 Pulse Ox (%): 97 - Physical Exam General: Alert, In no apparent distress, Demented, Confused Integumentary: Other (wound not well packed, soiled, patient had pressure effect to surrounding skin) Assessment And Plan - Current Problems (Diagnosis) (1) Osteomyelitis Current Visit: Yes Status: Acute Plan: - continue wound care per order - pressure reduction with rolling Q2 hrs - air mattress - antibiotics - continue medical management per Dr. Nunez - discussed today Qualifiers: Osteomyelitis type: other acute Laterality: unspecified laterality Physician Review: Patient Assessed, Agree with Above Assessment and Plan
[2021-11-29] MEDS: COLLAGENASE 30 GM OINTMENT TOP SCH (18:03)
[2021-11-29] MEDS: ENOXAPARIN 40 MG/0.4 ML SQ SCH (18:03)
[2021-11-29] MEDS: SODIUM HYPOCHLORITE 0.25% 473 ML TOP SCH (18:05)
[2021-11-30] MEDS: METHYLPREDNISOLONE 40 MG INJ IV SCH ×3 (01:02→17:27)
[2021-11-30] MEDS: PANTOPRAZOLE 40MG TABLET PO SCH (06:39)
[2021-11-30 06:51] LABS: Absolute Lymphocytes (CBC) 0.8 K/uL (0.7-4.9); Hematocrit 34.3 % (36.0-45.0); Lymphocytes % 6.8 % (15.3-44.8); MPV 6.6 fL (7.6-11.3); RBC Red Blood Cell Count 3.93 M/uL (3.86-4.86)
[2021-11-30 07:07] LABS: Albumin 2.3 g/dL (3.4-5.0); Bilirubin Total 0.6 mg/dL (0.2-1.0); Potassium 3.5 mmol/L (3.5-5.1); Protein, Total 6.2 g/dL (6.4-8.2)
[2021-11-30] MEDS: Levofloxacin 750mg IV 750 MG/150 ML BAG IV SCH (08:31)
[2021-11-30] MEDS: INSULIN GLARGINE 100 UNIT/ML SQ SCH (08:31)
[2021-11-30] MEDS: METOPROLOL XL 25 MG TAB PO SCH (08:32)
[2021-11-30] MEDS: COLLAGENASE 30 GM OINTMENT TOP SCH (08:50)
[2021-11-30] MEDS: SODIUM HYPOCHLORITE 0.25% 473 ML TOP SCH (08:50)
[2021-11-30] MEDS: INSULIN -REGULAR HUMAN 50 UNIT/0.5 ML ML SQ SCH ×4 (09:38→22:30)
[2021-11-30 10:46] LABS: Blood Morphology Comment NOTED (NOT SEEN); Hypochromasia 1+; Platelet Estimate ADEQ; White Blood Cell Scan OK (OK)
[2021-11-30] MEDS: NA CHLORIDE 0.9% 1,000 ML IV SCH ×2 (11:07→22:32)
[2021-11-30] MEDS: HYDROCODONE/APAP 7.5/325 MG TAB PO PRN (11:52)
[2021-11-30] MEDS ORDERED: KCL 20 MEQ/100 mL IVPB 20 MEQ/100 ML BAG IV ONE (13:00)
[2021-11-30] MEDS: ENOXAPARIN 40 MG/0.4 ML SQ SCH (17:26)
--- NOTE | 2021-12-01 00:46 | P.PN ---
Date of Service: 11/29/21 Subjective Subjective: Patient still with tremors and confusion. However, nurses noted that when wild oyster harvester is at bedside she is much better. Will discuss with wild oyster harvester when she arrives. Review of Systems is unable to be obtained Physical Examination - Vital Signs Reviewed - Physical Exam General: Delirious Respiratory: Clear to auscultation bilaterally, Normal air movement Cardiovascular: Regular rate/rhythm, Normal S1 S2 Gastrointestinal: Normal bowel sounds, No tenderness Neurological: Normal speech, Normal tone, Normal affect Assessment And Plan - Current Problems (Diagnosis) (1) COVID-19 Current Visit: Yes Status: Acute Plan: Patient tested positive for covid yesterday. Discharge held. Will need to check her vaccination status. No respiratory problems at this time. (2) Delirium Current Visit: Yes Status: Acute Plan: Starting to improve. Still with tremors but overall doing much better. (3) Osteomyelitis Current Visit: Yes Status: Acute Plan: Patient has e coli in the wound. multidrug sensitive. We can wait a day for blood and surgical cultures. before starting specific antibiotics. Consider levaquin. she needs snf placement for wound care and 6 weeks of iv antibiotics. 11/25 Patient is ready for discharge when bed avalible. Qualifiers: Osteomyelitis type: other acute Laterality: unspecified laterality (4) Diabetes Current Visit: No Status: Chronic Plan: will keep her on low dose sliding scale. Qualifiers: Diabetes mellitus type: type 2 Diabetes mellitus computer terminal operator insulin use: with half-way use Diabetes mellitus complication status: without complication Qualified Code(s): E11.9 - Type 2 diabetes mellitus without complications; Z79.4 - exterminator (current) use of insulin (5) Hypertension Current Visit: No Status: Chronic Plan: restart her metoprolol. Qualifiers: Hypertension type: primary hypertension Qualified Code(s): I10 - Essential (primary) hypertension (6) Discharge planning issues Current Visit: Yes Status: Acute Plan: will need PT, Wound care and 6 weeks of iv antibiotics. Will discuss with clinical services professional. Discharge Plan: LTAC Plan to discharge in: Greater than 2 days - Code Status/Comfort Care Code Status Assessed: No Physician Review: Patient Assessed, Agree with Above Assessment and Plan Critical Care: No Time Spent Managing PTS Care (In Minutes): 30
--- NOTE | 2021-12-01 00:48 | P.PN ---
Date of Service: 11/30/21 Subjective Patient is doing much better. Dehydrating Press Operator at bedside and tremors have pretty much resolved. She is interacting more appropriately. Having juan conversation. Still not eating that much but her appetite has improved. Physical therapy consulted and appreciate their assistance. Arranging for [facility] at discharge. Mentation is improving and hopefully can discharge her over the next 24 hours. Review of Systems is unable to be obtained Physical Examination - Vital Signs Reviewed - Physical Exam General: Delirious Respiratory: Clear to auscultation bilaterally, Normal air movement Cardiovascular: Regular rate/rhythm, Normal S1 S2 Gastrointestinal: Normal bowel sounds, No tenderness Neurological: Normal speech, Normal tone, Normal affect Assessment And Plan - Current Problems (Diagnosis) (1) COVID-19 Current Visit: Yes Status: Acute Plan: Patient discharged on home secondary to COVID-19 infection. Clinical status is stable. Patient does seem to have some neurologic issues which are improved. (2) Delirium Current Visit: Yes Status: Acute Plan: Starting to improve. Tremors are much better as well. (3) Osteomyelitis Current Visit: Yes Status: Acute Plan: Outpatient treatment with IV Levaquin x6 weeks Qualifiers: Osteomyelitis type: other acute Laterality: unspecified laterality (4) Diabetes Current Visit: No Status: Chronic Plan: will keep her on low dose sliding scale. Qualifiers: Diabetes mellitus type: type 2 Diabetes mellitus correction insulin use: with manager terminal use Diabetes mellitus complication status: without complication Qualified Code(s): E11.9 - Type 2 diabetes mellitus without complications; Z79.4 - rat exterminator (current) use of insulin (5) Hypertension Current Visit: No Status: Chronic Plan: restart her metoprolol. Qualifiers: Hypertension type: primary hypertension Qualified Code(s): I10 - Essential (primary) hypertension (6) Discharge planning issues Current Visit: Yes Status: Acute Plan: will need PT, Wound care and 6 weeks of iv antibiotics. Will discuss with interlibrary loan services librarian. Discharge Plan: LTAC Plan to discharge in: Greater than 2 days - Code Status/Comfort Care Code Status Assessed: No Physician Review: Patient Assessed, Agree with Above Assessment and Plan Critical Care: No Time Spent Managing PTS Care (In Minutes): 30
[2021-12-01] MEDS: METHYLPREDNISOLONE 40 MG INJ IV SCH ×3 (01:23→20:41)
[2021-12-01] MEDS: NA CHLORIDE 0.9% 1,000 ML IV SCH ×2 (04:00→16:29)
[2021-12-01] MEDS: PANTOPRAZOLE 40MG TABLET PO SCH (05:44)
[2021-12-01 07:01] LABS: Absolute Lymphocytes (CBC) 0.6 K/uL (0.7-4.9); Hematocrit 31.5 % (36.0-45.0); Lymphocytes % 7.1 % (15.3-44.8); MPV 6.7 fL (7.6-11.3); RBC Red Blood Cell Count 3.58 M/uL (3.86-4.86)
[2021-12-01 07:16] LABS: Albumin 2.2 g/dL (3.4-5.0); Bilirubin Total 0.4 mg/dL (0.2-1.0); Protein, Total 5.7 g/dL (6.4-8.2)
--- NOTE | 2021-12-01 08:06 | P.PN ---
Subjective Date of Service: 12/01/21 Primary Care Provider: Delia Chief Complaint: osteomyelitis Subjective: Improving (Patient is awake and answering questions appropriately) Review of Systems 10-point ROS is otherwise unremarkable Physical Examination - Vital Signs Temperature: 96.8 F Blood Pressure: 139/65 Pulse: 74 Respirations: 19 Pulse Ox (%): 97 - Physical Exam General: Alert, In no apparent distress HEENT: Atraumatic, PERRLA, EOMI Neck: Supple, JVD not distended Respiratory: Clear to auscultation bilaterally, Normal air movement Cardiovascular: Regular rate/rhythm, Normal S1 S2 Gastrointestinal: Normal bowel sounds, No tenderness Musculoskeletal: No tenderness Integumentary: No rashes Neurological: Normal speech, Normal tone, Normal affect Lymphatics: No axilla or inguinal lymphadenopathy Assessment And Plan - Current Problems (Diagnosis) (1) COVID-19 Current Visit: Yes Status: Acute Plan: Patient has no respiratory problems. Is doing well. No need for steroids (2) Delirium Current Visit: Yes Status: Acute Plan: Most likely due to pain and infection. She is responsive and moves all 4 limbs / Improved with geodan. Patient stable for transfer (3) Osteomyelitis Current Visit: Yes Status: Acute Plan: Patient has e coli in the wound. multidrug sensitive. We can wait a day for blood and surgical cultures. before starting specific antibiotics. Consider levaquin. she needs snf placement for wound care and 6 weeks of iv antibiotics. 11/25 Patient is ready for discharge when bed avalible. Qualifiers: Osteomyelitis type: other acute Laterality: unspecified laterality (4) Diabetes Current Visit: No Status: Chronic Plan: will keep her on low dose sliding scale. Qualifiers: Diabetes mellitus type: type 2 Diabetes mellitus correction insulin use: with terminal clerk use Diabetes mellitus complication status: without complication Qualified Code(s): E11.9 - Type 2 diabetes mellitus without complications; Z79.4 - adjunct faculty for medical terminology (current) use of insulin (5) Hypertension Current Visit: No Status: Chronic Plan: restart her metoprolol. Qualifiers: Hypertension type: primary hypertension Qualified Code(s): I10 - Essential (primary) hypertension (6) Discharge planning issues Current Visit: Yes Status: Acute Plan: will need PT, Wound care and 6 weeks of iv antibiotics. Will discuss with rehabilitation services aide. Discharge Plan: LTAC Plan to discharge in: 24 Hours - Code Status/Comfort Care Code Status Assessed: No Code Status: Full Code Physician Review: Patient Assessed, Agree with Above Assessment and Plan Critical Care: No Time Spent Managing PTS Care (In Minutes): 25
--- NOTE | 2021-12-01 08:36 | EEG ---
CHART: [id number] TEST ID#: [id number] DATE OF STUDY: 11/27/2021 THE EEG WAS RECORDED [place] IN THE PATIENT'S ROOM ON A 17 CHANNEL MACHINE. ELECTRODES WERE APPLIED IN THE USUAL MANNER USING THE INTERNATIONAL 10-20 SYSTEM. THE WAKING BACKGROUND RHYTHM IN THIS RECORD CONSISTS OF FAIRLY WELL DEVELOPED AND FAIRLY WELL ORGANIZED WAVES OF 9 HZ., MAXIMAL IN THE POSTERIOR HEAD REGIONS WHICH ATTENUATE NORMALLY WITH EYE OPENING. LOW-VOLTAGE 18-22 HZ ACTIVITY IS EXPRESSED IN THE FRONTAL REGIONS. LOW TO MODERATE VOLTAGE 1.5-3 HZ ACTIVITY IS OCCASIONALLY EXPRESSED IN THE FRONTAL REGIONS. THERE ARE NO FOCAL OR LATERALIZING FEATURES. NO EPILEPTIFORM ACTIVITY APPEARS. SLEEP DID NOT OCCUR. HYPERVENTILATION WAS NOT PERFORMED. PHOTIC STIMULATION PRODUCED FAIR DRIVING BILATERALLY. IMPRESSION: THIS IS A MILDLY ABNORMAL AWAKE AND DROWSY EEG DUE TO A MILDLY SLOW FRONTAL ACTIVITY. THIS IS A NON-SPECIFIC FINDING INDICATING THE PRESENCE OF A MILD DIFFUSE DISTURBANCE IN CEREBRAL FUNTION.
[2021-12-01] MEDS: INSULIN GLARGINE 100 UNIT/ML SQ SCH (08:47)
[2021-12-01] MEDS: INSULIN -REGULAR HUMAN 50 UNIT/0.5 ML ML SQ SCH ×4 (08:47→20:41)
[2021-12-01] MEDS: SODIUM HYPOCHLORITE 0.25% 473 ML TOP SCH (08:48)
[2021-12-01] MEDS: Levofloxacin 750mg IV 750 MG/150 ML BAG IV SCH (08:48)
[2021-12-01] MEDS: COLLAGENASE 30 GM OINTMENT TOP SCH (08:48)
[2021-12-01] MEDS: METOPROLOL XL 25 MG TAB PO SCH (08:50)
--- NOTE | 2021-12-01 15:25 | P.DS ---
Admission Date: 11/17/21 Discharge Date: 12/01/21 Primary Care Provider: Delia Disposition: ROUTINE DISCHARGE Discharge Condition: GOOD Reason for Admission: osteomyelitis - Problems (1) COVID-19 Current Visit: Yes Status: Acute (2) Delirium Current Visit: Yes Status: Acute (3) Osteomyelitis Current Visit: Yes Status: Acute Qualifiers: Osteomyelitis type: other acute Laterality: unspecified laterality (4) Diabetes Current Visit: No Status: Chronic Qualifiers: Diabetes mellitus type: type 2 Diabetes mellitus terminal system operator insulin use: with penitentiary use Diabetes mellitus complication status: without complication Qualified Code(s): E11.9 - Type 2 diabetes mellitus without complications; Z79.4 - terminal system operator (current) use of insulin (5) Hypertension Current Visit: No Status: Chronic Qualifiers: Hypertension type: primary hypertension Qualified Code(s): I10 - Essential (primary) hypertension (6) Discharge planning issues Current Visit: Yes Status: Acute Brief History of Present Illness: Patient of Dr. Lin with a history of diabetes, htn and stroke. Mostly bed bound. Had developed a pressure ulcer for which Dr. Lin sent her to the wound care center. She had been started on Santyl last week. The past 3 days the patient has been getting increased more confused. Eating less and getting more combative. She had worsening of the wound bed. Was much deeper on todays exam. Decisison was made with her sister to admit her. Hospital Course: Patient was admitted to the hospital from the wound care center. She had surgical debridement of the wound with Dr Muse. The wound went to the bone. Placement in a snf facility. She will need 6 weeks of iv antibiotics, PT and wound care. The patient was found to have e Coli, pr. Mirabilis and e. Fecalis in the wound culture. All sensitive to levaquin. She was confused in the hospital. However she has been waking up a bit more as the stay increased. Especially with PT. 12/01/21 Patient is doing better, no longer combative. Her delirium is controlled with intermittent geodan. Have spoken to the physician in [facility]. No plans for surgery with Dr. Muse. Will transfer her when bed avalible. Thank you for allowing me to take part in her care. Vital Signs/Physical Exam: Temp Pulse Resp BP Pulse Ox 98.6 F 61 16 144/88 H 100 06/06/22 12:00 12/01/21 12:00 12/01/21 12:00 12/01/21 12:00 12/01/21 12:00 General: Alert, In no apparent distress HEENT: Atraumatic, PERRLA, EOMI Neck: Supple, JVD not distended Respiratory: Clear to auscultation bilaterally, Normal air movement Cardiovascular: Regular rate/rhythm, Normal S1 S2 Gastrointestinal: Normal bowel sounds, No tenderness Musculoskeletal: No tenderness Integumentary: No rashes Neurological: Normal speech, Normal tone, Normal affect Lymphatics: No axilla or inguinal lymphadenopathy Laboratory Data at Discharge: WBC 8.2 K/uL (4.3-10.9) D 12/01/21 06:30 Hgb 10.6 g/dL (12.0-15.0) L 12/01/21 06:30 Hct 31.5 % (36.0-45.0) L 12/01/21 06:30 Plt Count 338 K/uL (152-406) 12/01/21 06:30 PT 13.8 SECONDS (9.5-12.5) H 11/17/21 17:32 INR 1.25 11/17/21 17:32 Sodium 138 mmol/L (136-145) 12/01/21 06:30 Potassium 4.0 mmol/L (3.5-5.1) 12/01/21 06:30 BUN 24 mg/dL (7-18) H 12/01/21 06:30 Creatinine 0.85 mg/dL (0.55-1.3) 12/01/21 06:30 Glucose 399 mg/dL (74-106) H 12/01/21 06:30 Magnesium 2.0 mg/dL (1.8-2.4) 12/01/21 06:30 Total Bilirubin 0.4 mg/dL (0.2-1.0) 12/01/21 06:30 AST 8 U/L (15-37) L 12/01/21 06:30 ALT 15 U/L (12-78) 12/01/21 06:30 Alkaline Phosphatase 70 U/L (45-117) 12/01/21 06:30 Home Medications: Aspirin [Aspirin EC 81 MG] 81 mg PO DAILY 11/11/21 Furosemide 40 mg PO DAILY 11/11/21 Insulin Aspart Prot/Insuln Asp [Novolog Mix 70-30 Flexpen Syrn] 40 unit SQ BEDTIME 11/11/21 Insulin Aspart Prot/Insuln Asp [Novolog Mix 70-30 Flexpen Syrn] 52 unit SQ DAILY 11/11/21 Metolazone [Zaroxolyn] 10 mg PO DAILY 11/11/21 Metoprolol Succinate 25 mg PO DAILY 11/11/21 Cholecalciferol (Vitamin D3) [Vitamin D3] 125 mcg PO DAILY 11/18/21 Potassium Gluconate 90 mg PO DAILY 11/18/21 Vitamin B Complex [B-Complex Vitamin] 1 cap PO DAILY 11/18/21 Vitamin E (Dl,Tocopheryl Acet) [Vitamin E] 180 mg PO DAILY 11/18/21 Diet: ADA Activity: Fall precautions Followup: Vishal Ibrahim MD [ACTIVE - CAN ADMIT] - (after discharge from snf facility ) Time spent managing pt's care (in minutes): 30
[2021-12-01] MEDS: ENOXAPARIN 40 MG/0.4 ML SQ SCH (20:41)
[2021-12-01] MEDS ORDERED: JUVEN PACKET PO SCH (21:00)
[2021-12-01] MEDS ORDERED: ENSURE HIGH PROTEIN 237 ML CAN PO SCH (21:00)
[2021-12-01 21:39] VITALS: O2SAT 97
[2021-12-01 23:45] VITALS: BP 134/81; TEMP 97.1
[2021-12-02] MEDS: METHYLPREDNISOLONE 40 MG INJ IV SCH (00:17)
== END 2021-12-02 00:35 | DRG 853 ==
LOC: ER 14:35 → ERHOLD 19:25 → 4TH 11-18 00:25
PROVIDERS: ADMIT Internal Medicine; ATTEND Internal Medicine
PROC: 0T9B70Z Drainage of Bladder with Drainage Device, Via Natural or Artificial Opening (ICD-10-PCS; 2021-11-17)
PROC: 0QB10ZZ Excision of Sacrum, Open Approach (ICD-10-PCS; principal; 2021-11-18 11:30)
PROC: 02HV33Z Insertion of Infusion Device into Superior Vena Cava, Percutaneous Approach (ICD-10-PCS; 2021-11-21)
PROC: 3E04329 Introduction of Other Anti-infective into Central Vein, Percutaneous Approach (ICD-10-PCS; 2021-11-21)
DX: A41.51 Sepsis due to Escherichia coli [E. coli] (principal); L89.313 Pressure ulcer of right buttock, stage 3; U07.1 COVID-19; G92.9 Unspecified toxic encephalopathy; M46.28 Osteomyelitis of vertebra, sacral and sacrococcygeal region; E11.52 Type 2 diabetes mellitus with diabetic peripheral angiopathy with gangrene; I96 Gangrene, not elsewhere classified; E44.0 Moderate protein-calorie malnutrition; R65.20 Severe sepsis without septic shock; I10 Essential (primary) hypertension; R41.0 Disorientation, unspecified; E11.69 Type 2 diabetes mellitus with other specified complication; Z74.01 Bed confinement status; Z68.32 Body mass index [BMI] 32.0-32.9, adult; Z79.4 Long term (current) use of insulin; Z86.73 Personal history of transient ischemic attack (TIA), and cerebral infarction without residual deficits
CPT/HCPCS: 36415; 36569; 71045; 74018; 80048; 80053; 80076; 80202; 81003; 81015; 82947; 83036; 83605; 83735; 83880; 84132; 84145; 84443; 84484; 85025; 85610; 87040; 87070; 87075; 87077; 87186; 87205; 88304; 93005; 95819; 96365; 96375; 97110; 97161; 97530; 99213; 99285; J0692; J1170; J1650; J1815; J2185; J2370; J2704; J2920; J3010; J3370; J3480; J3486; J3590; J7030; J7050; U0003